=== PATIENT | female | born 2000 | race Caucasian/White ===

== ENCOUNTER 2022-01-14 15:46 | Outpatient (RCR) | payer OTHER, SELFPAY | END 2022-04-14 23:59 | disposition home or self-care (01) | LOC: ANHLAB 15:46 | PROVIDERS: PCP Pediatrics Adolescent Medicine; Visit Provider Obstetrics & Gynecology | DX: N92.6 Irregular menstruation, unspecified (principal) | CPT/HCPCS: 36415; 84702 ==

== ENCOUNTER 2022-01-16 08:56 | Outpatient (CLI) | payer OTHER, SELFPAY | END 2022-01-16 08:57 | disposition home or self-care (01) | PROVIDERS: PCP Pediatrics Adolescent Medicine; Visit Provider Obstetrics & Gynecology | DX: N92.6 Irregular menstruation, unspecified (principal) | CPT/HCPCS: 36415; 84702 ==

== ENCOUNTER 2022-03-11 10:37 | Outpatient (CLI) | payer MEDICAID, SELFPAY ==
[2022-03-11 11:12] LABS: Basophils Percent Auto 0.3 % (0.2-1.2); Eosinophils Absolute Auto 0.2 K/mm3 (0-0.3); Eosinophils Percent Auto 1.2 % (0-4.4); Hematocrit 37.5 % (37.0-47.0); Immature Granulocyte Absolute 0.07 K/mm3 (0.00-0.031); Immature Granulocyte Percent A 0.5 % (0-0.5); Lymphocytes Absolute Auto 1.59 K/mm3 (0.9-3.2); Lymphocytes Percent Auto 12.4 % (18.3-44.2); Mean Corpuscular HGB Conc 34.7 g/dl (32-36); Mean Corpuscular Hemoglobin 32.2 pg (26-34); Mean Corpuscular Volume 92.8 fl (80-100); Mean Platelet Volume 8.7 fl (7.4-10.4); Monocytes Absolute Auto 0.7 K/mm3 (0.1-0.6); Monocytes Percent Auto 5.5 % (2.6-8.5); Neutrophils Absolute Auto 10.3 K/mm3 (1.3-6.7); Neutrophils Percent Auto 80.1 % (45.5-73.1); Platelet Count Result 316 k/mm3 (150-375); Red Blood Count 4.04 M/mm3 (4.2-5.4); Red Cell Distribution Width 12.6 % (11.5-14.5); White Blood Count 12.9 K/mm3 (4.5-10.0)
[2022-03-11 12:05] LABS: HIV 1/2 Ab P24 Ag Result Negative (Negative)
[2022-03-11 12:18] LABS: Rubella IgG Antibody 0.8 IU/ML
[2022-03-11 16:29] LABS: Rapid Plasma Reagin Non-Reactive (NonReactive)
[2022-03-15 11:29] LABS: CMV IgG Antibody <0.60 U/mL (<0.60)
[2022-03-16 04:50] LABS: Varicella IgG Antibody <135.00 Index (>=165.00)
[2022-03-19 10:27] LABS: SMA 2.0 RISK VARIANT NOT DETECTED
[2022-03-20 00:57] LABS: CF Result NEGATIVE (NEGATIVE); Ethnicity NG
[2022-03-25 13:58] LABS: SMA Results Received Yes
== END 2022-03-11 10:38 | disposition home or self-care (01) ==
LOC: ANHLAB 10:37
PROVIDERS: PCP Pediatrics Adolescent Medicine; Visit Provider Obstetrics & Gynecology
DX: Z34.90 Encounter for supervision of normal pregnancy, unspecified, unspecified trimester (principal)
CPT/HCPCS: 36415; 81220; 81329; 85025; 86592; 86644; 86703; 86747; 86762; 86787; 86850; 86900; 86901; 87086; 87088; G0432

== ENCOUNTER 2022-06-09 15:21 | Observation (INO) | payer OTHER, SELFPAY ==
--- NOTE | 2022-06-09 15:21 | OBADM ---
This patient, Samia Green, admitted to the OB room OB Post 113 for observation. Patient/family oriented to hospital policies and general routines including ID bracelet, bed and alarms, visiting hours, pain management, procedures, bathroom and other care routines, personal items, smoking policy, room service/diet, and visiting hours. Patient/Family are encouraged to report perceived risks to care and to ask questions if they do not understand what they are told or what they should do.
[2022-06-09 15:35] VITALS: BMI 27.5
[2022-06-09 15:36] VITALS: BP 110/58; PULSE 92
[2022-06-09 15:37] VITALS: RESP 20; TEMP 36.6
[2022-06-09 16:04] LABS: Appearance Urine Cloudy (Clear); Bacteria Urine None Seen /hpf; Bilirubin Urine Negative (Negative); Blood Urine Negative (Negative); Color Urine Yellow (Yellow); Glucose Urine UA Negative (Negative); Ketones Urine Negative (Negative); Leukocyte Esterase Ur 2+ LEU/UL (Negative); Nitrate Urine Negative (Negative); Non Pathogenic Casts 0-2; Protein Urine Negative (Negative); RBC Urine 0-2 /hpf (0-2); Specific Grav Ur 1.015 (1.001-1.035); Squamous Epithelial Cell Urine Few /hpf (Few); Urobilinogen Urine 0.2 mg/dL (<2.0); WBC Urine 21-50 /hpf
[2022-06-09 16:09] LABS: Add Urine Microscopic? YES
--- NOTE | 2022-06-10 13:52 | P.PNOB_ITS ---
OB - Triage/Final Diagnosis Visit Information Date of evaluation: 06/09/22 Reason for evaluation: threatened labor Comments/Additional reasons for admission: I have assessed the risk for this patient, Samia Green, and determined that she would benefit from observation care. Evaluation Laboratory results: Laboratory Tests 06/09/22 15:50 Urine Color Yellow Urine Appearance Cloudy H Urine pH 6.0 Ur Specific [place] 1.015 Urine Protein Negative Urine Glucose (UA) Negative Urine Ketones Negative Ur Blood (Man) Negative Urine Nitrate Negative Urine Bilirubin Negative Urine Urobilinogen 0.2 Leukocyte Esterase Rfl 2+ H Urine RBC 0-2 Urine WBC 21-50 H Ur Squamous Epith Cells Few Urine Bacteria None seen Urine Casts 0-2 Vital signs: Vital Signs - 24 hr 06/09/22 15:36 06/09/22 15:37 06/09/22 15:35 Temperature 97.9 F Pulse Rate 92 Respiratory Rate 20 Blood Pressure 110/58 L Oxygen Delivery Room Air
== END 2022-06-09 16:55 | disposition home or self-care (01) ==
PROVIDERS: Admitting Provider Student in an Organized Health Care Education/Training Program; PCP Pediatrics Adolescent Medicine; Visit Provider Student in an Organized Health Care Education/Training Program
DX: O47.02 False labor before 37 completed weeks of gestation, second trimester (principal); O26.892 Other specified pregnancy related conditions, second trimester; R10.9 Unspecified abdominal pain; Z3A.26 26 weeks gestation of pregnancy
CPT/HCPCS: 81001; 87086; 87088; G0378; G0379

== ENCOUNTER 2022-06-21 10:37 | Observation (INO) | payer OTHER, SELFPAY ==
[2022-06-21] VITALS (9 sets, daily range): BP systolic 86–126; BP diastolic 59–99; PULSE 65–85; BMI 27.4
[2022-06-21 11:51] LABS: Appearance Urine Clear (Clear); Bilirubin Urine Negative (Negative); Blood Urine Negative (Negative); Color Urine Yellow (Yellow); Glucose Urine UA Negative (Negative); Ketones Urine Negative (Negative); Leukocyte Esterase Ur Negative LEU/UL (NEGATIVE); Nitrate Urine Negative (Negative); Protein Urine Negative (Negative); Specific Grav Ur 1.005 (1.001-1.035); Urobilinogen Urine 0.2 mg/dL (<2.0)
[2022-06-21 12:12] LABS: Add Urine Microscopic? NO
--- NOTE | 2022-06-21 12:58 | PC.NURSE ---
Dr Sher notified of c/o cramping and change in vaginal discharge, informed of reassuring tracing for gestational age and occa variable decels. No contractions noted or palpated when at bedside. ROM plus was negative. Ok to dc home with labor precautions.
--- NOTE | 2022-06-21 13:25 | PM.OBTRLD ---
OB - Triage/Final Diagnosis Visit Information Date of evaluation: 06/21/22 Reason for evaluation: threatened labor Comments/Additional reasons for admission: I have assessed the risk for this patient, Samia Green, and determined that she would benefit from observation care. Evaluation Laboratory results: Laboratory Tests 06/21/22 11:29 Urine Color Yellow Urine Appearance Clear Urine pH 8.0 Ur Specific [place] 1.005 Urine Protein Negative Urine Glucose (UA) Negative Urine Ketones Negative Ur Blood (Man) Negative Urine Nitrate Negative Urine Bilirubin Negative Urine Urobilinogen 0.2 Ur Leukocyte Esterase Negative Vital signs: Vital Signs - 24 hr 06/21/22 11:00 06/21/22 11:15 06/21/22 11:30 Pulse Rate 85 74 65 Blood Pressure 117/68 110/62 126/99 H 06/21/22 11:45 06/21/22 12:00 06/21/22 12:15 Pulse Rate 80 81 81 Blood Pressure 114/66 114/59 L 118/77 06/21/22 12:31 06/21/22 12:44 06/21/22 12:45 Pulse Rate 73 72 75 Blood Pressure 86/61 L 111/62 111/68
== END 2022-06-21 13:08 | disposition home or self-care (01) ==
PROVIDERS: Admitting Provider Student in an Organized Health Care Education/Training Program; PCP Pediatrics Adolescent Medicine; Visit Provider Student in an Organized Health Care Education/Training Program
DX: O47.02 False labor before 37 completed weeks of gestation, second trimester (principal); O26.892 Other specified pregnancy related conditions, second trimester; R10.9 Unspecified abdominal pain; Z3A.27 27 weeks gestation of pregnancy
CPT/HCPCS: 81003; 84112; 87086; G0378; G0379

== ENCOUNTER 2022-07-15 16:53 | Outpatient (CLI) | payer OTHER, SELFPAY ==
[2022-07-15 17:25] LABS: Basophils Absolute Auto 0.1 K/mm3 (0.0-0.1); Basophils Percent Auto 0.6 % (0.2-1.2); Eosinophils Absolute Auto 0.3 K/mm3 (0-0.3); Eosinophils Percent Auto 1.6 % (0-4.4); Hematocrit 34.5 % (37.0-47.0); Hemoglobin 11.7 g/dL (12.0-15.0); Immature Granulocyte Absolute 0.47 K/mm3 (0.00-0.031); Immature Granulocyte Percent A 2.7 % (0-0.5); Lymphocytes Absolute Auto 1.76 K/mm3 (0.9-3.2); Lymphocytes Percent Auto 10.1 % (18.3-44.2); Mean Corpuscular HGB Conc 33.9 g/dl (32-36); Mean Corpuscular Hemoglobin 31.5 pg (26-34); Mean Corpuscular Volume 92.7 fl (80-100); Mean Platelet Volume 9.2 fl (7.4-10.4); Monocytes Absolute Auto 1.4 K/mm3 (0.1-0.6); Monocytes Percent Auto 7.9 % (2.6-8.5); Neutrophils Absolute Auto 13.5 K/mm3 (1.3-6.7); Neutrophils Percent Auto 77.1 % (45.5-73.1); Platelet Count Result 407 k/mm3 (150-375); Red Blood Count 3.72 M/mm3 (4.2-5.4); Red Cell Distribution Width 12.2 % (11.5-14.5); White Blood Count 17.5 K/mm3 (4.5-10.0)
[2022-07-15 18:18] LABS: HIV 1/2 Ab P24 Ag Result Negative (Negative)
[2022-07-15 19:28] LABS: Hepatitis B Surface Antigen Negative (Negative)
== END 2022-07-15 16:54 | disposition home or self-care (01) ==
PROVIDERS: Visit Provider Obstetrics & Gynecology
DX: Z34.90 Encounter for supervision of normal pregnancy, unspecified, unspecified trimester (principal)
CPT/HCPCS: 36415; 85025; 86703; 87340; G0432

== ENCOUNTER 2022-07-16 08:25 | Outpatient (CLI) | payer OTHER, SELFPAY ==
[2022-07-16 10:35] LABS: Glucose 1 Hour PP 50gm Dose 115 mg/dL
== END 2022-07-16 08:26 | disposition home or self-care (01) ==
PROVIDERS: Visit Provider Obstetrics & Gynecology
DX: Z34.90 Encounter for supervision of normal pregnancy, unspecified, unspecified trimester (principal); Z3A.00 Weeks of gestation of pregnancy not specified
CPT/HCPCS: 36415; 82947

== ENCOUNTER 2022-08-03 14:40 | Observation (INO) | payer OTHER, SELFPAY ==
[2022-08-03 15:30] VITALS: BP 116/74; PULSE 88
[2022-08-03 16:00] VITALS: RESP 16; TEMP 36.8
--- NOTE | 2022-08-03 16:00 | OBADM ---
This patient, Samia Green, admitted to the OB room 115 for observation. Patient/family oriented to hospital policies and general routines including ID bracelet, bed and alarms, visiting hours, pain management, procedures, bathroom and other care routines, personal items, smoking policy, room service/diet, and visiting hours. Patient/Family are encouraged to report perceived risks to care and to ask questions if they do not understand what they are told or what they should do.
[2022-08-03 16:01] VITALS: BP 104/67; PULSE 89
[2022-08-03] MEDS: ONDANSETRON INJ 4 MG/2 ML VIAL IV PUSH (16:14)
[2022-08-03] MEDS: DEXTROSE 5%/LACTATED RINGERS 1,000 ML 999 ML IV CONT (16:14)
[2022-08-03 16:29] LABS: Basophils Absolute Auto 0.1 K/mm3 (0.0-0.1); Basophils Percent Auto 0.5 % (0.2-1.2); Eosinophils Absolute Auto 0.1 K/mm3 (0-0.3); Eosinophils Percent Auto 0.6 % (0-4.4); Hematocrit 33.2 % (37.0-47.0); Hemoglobin 11.1 g/dL (12.0-15.0); Immature Granulocyte Absolute 0.29 K/mm3 (0.00-0.031); Immature Granulocyte Percent A 1.5 % (0-0.5); Lymphocytes Percent Auto 9.6 % (18.3-44.2); Mean Corpuscular HGB Conc 33.4 g/dl (32-36); Mean Corpuscular Hemoglobin 30.1 pg (26-34); Mean Platelet Volume 9.4 fl (7.4-10.4); Monocytes Absolute Auto 1.2 K/mm3 (0.1-0.6); Monocytes Percent Auto 6.3 % (2.6-8.5); Neutrophils Absolute Auto 15.3 K/mm3 (1.3-6.7); Neutrophils Percent Auto 81.5 % (45.5-73.1); Platelet Count Result 413 k/mm3 (150-375); Red Blood Count 3.69 M/mm3 (4.2-5.4); Red Cell Distribution Width 12.2 % (11.5-14.5); White Blood Count 18.8 K/mm3 (4.5-10.0)
[2022-08-03 16:33] LABS: Appearance Urine Clear (Clear); Bacteria Urine None Seen /hpf; Bilirubin Urine Negative (Negative); Blood Urine Negative (Negative); Color Urine Yellow (Yellow); Glucose Urine UA Negative (Negative); Ketones Urine Trace mg/dL (Negative); Leukocyte Esterase Ur 1+ LEU/UL (Negative); Nitrate Urine Negative (Negative); Non Pathogenic Casts 0-2; Protein Urine Negative (Negative); RBC Urine 0-2 /hpf (0-2); Specific Grav Ur 1.009 (1.001-1.035); Squamous Epithelial Cell Urine Occasional /hpf (Few); Urobilinogen Urine 0.2 mg/dL (<2.0); WBC Urine 21-50 /hpf
[2022-08-03 16:38] LABS: Alanine Aminotransferase 16 U/L (6-35); Albumin Level 3.6 g/dL (3.5-5.1); Alkaline Phosphatase 109 U/L (38-126); Anion Gap 6 mmol/L (8-16); Aspartate Amino Transferase 23 U/L (14-36); Bilirubin,Total 0.5 mg/dL (0.2-1.3); Blood Urea Nitrogen 5 mg/dL (7-17); Calcium 8.7 mg/dL (8.4-10.2); Carbon Dioxide 24 mmol/L (22-30); Chloride 101 mmol/L (98-107); Estimated Glomerular Filt Rate > 60; Glucose 87 mg/dL (65-110); Potassium 3.8 mmol/L (3.4-5.0); Sodium 131 mmol/L (137-145)
[2022-08-03 16:42] LABS: Add Urine Microscopic? YES
[2022-08-03 17:00] VITALS: BP 118/76; PULSE 67
[2022-08-03] MEDS: NITROFURANTOIN MONOHYD MACROCR 100 MG CAP PO (17:57)
[2022-08-03] MEDS: FAMOTIDINE 20 MG TABLET PO (17:57)
[2022-08-03 18:01] VITALS: BP 128/93; PULSE 80
[2022-08-03 18:13] VITALS: BP 126/77; PULSE 77
--- NOTE | 2022-08-03 20:36 | P.PNOB_ITS ---
OB - Triage/Final Diagnosis Visit Information Comments/Additional reasons for admission: I have assessed the risk for this patient, Samia Green, and determined that she would benefit from observation care. Evaluation Laboratory results: Laboratory Tests 08/03/22 16:19 WBC 18.8 H RBC 3.69 L Hgb 11.1 L Hct 33.2 L MCV 90.0 MCH 30.1 MCHC 33.4 RDW 12.2 Plt Count 413 H MPV 9.4 Immature Gran % (Auto) 1.5 H Neut % (Auto) 81.5 H Lymph % (Auto) 9.6 L [place] % (Auto) 6.3 Eos % (Auto) 0.6 Baso % (Auto) 0.5 Lymph # (Auto) 1.80 [place] # (Auto) 1.2 H Eos # (Auto) 0.1 Baso # (Auto) 0.1 Abs Immat Gran (auto) 0.29 H Absolute Neuts (auto) 15.3 H Absolute Nucleated RBC 0.0 Nucleated RBC % 0.0 Sodium 131 L Potassium 3.8 Chloride 101 Carbon Dioxide 24 Anion Gap 6 L BUN 5 L Creatinine 0.40 L Estim Creat Clear Calc Not Reportable Estimated GFR > 60 Glucose 87 Calcium 8.7 Total Bilirubin 0.5 AST 23 ALT 16 Alkaline Phosphatase 109 Total Protein 7.0 Albumin 3.6 Urine Color Yellow Urine Appearance Clear Urine pH 6.0 Ur Specific [place] 1.009 Urine Protein Negative Urine Glucose (UA) Negative Urine Ketones Trace H Ur Blood (Man) Negative Urine Nitrate Negative Urine Bilirubin Negative Urine Urobilinogen 0.2 Leukocyte Esterase Rfl 1+ H Urine RBC 0-2 Urine WBC 21-50 H Ur Squamous Epith Cells Occasional Urine Bacteria None seen Urine Casts 0-2 Vital signs: Vital Signs - 24 hr 08/03/22 15:30 08/03/22 16:01 08/03/22 17:00 Pulse Rate 88 89 67 Blood Pressure 116/74 104/67 118/76 08/03/22 18:01 08/03/22 18:13 Pulse Rate 80 77 Blood Pressure 128/93 H 126/77 Final Diagnosis (1) Nausea and vomiting during : Code(s): O21.9 - Vomiting of , unspecified Status: Acute (2) UTI (urinary tract infection): Code(s): N39.0 - Urinary tract infection, site not specified Status: Acute
== END 2022-08-03 19:10 | disposition home or self-care (01) ==
PROVIDERS: Admitting Provider Obstetrics & Gynecology; Visit Provider Obstetrics & Gynecology
DX: O21.2 Late vomiting of pregnancy (principal); O99.891 Other specified diseases and conditions complicating pregnancy; N39.0 Urinary tract infection, site not specified; Z3A.34 34 weeks gestation of pregnancy
CPT/HCPCS: 36415; 80053; 81001; 85025; 87086; 96361; 96374; A9270; G0378; G0379; J2405; J7121

== ENCOUNTER 2022-08-19 14:08 | Inpatient (IN) | payer OTHER, SELFPAY ==
[2022-08-19] VITALS (131 sets, daily range): BP systolic 123–177; BP diastolic 60–161; PULSE 69–184; TEMP 36.3–36.6; O2SAT 98–100; BMI 31.5
--- NOTE | 2022-08-19 12:20 | PC.NURSE ---
pt sent from Dr. Valdez office. Orders received for pt to have NST and [place].
[2022-08-19] MEDS: BETAMETHASONE SOD PHOS/ACETATE 30 MG/5 ML VIAL 12 MG IM (12:27)
[2022-08-19 14:08] LABS: Appearance Urine Cloudy (Clear); Bacteria Urine Rare /hpf; Bilirubin Urine Negative (Negative); Blood Urine Negative (Negative); Color Urine Yellow (Yellow); Glucose Urine UA Negative (Negative); Ketones Urine 2+ mg/dL (Negative); Leukocyte Esterase Ur 3+ LEU/UL (NEGATIVE); Nitrate Urine Negative (Negative); Non Pathogenic Casts 0-2; Protein Urine Negative (Negative); RBC Urine 0-2 /hpf (0-2); Specific Grav Ur 1.012 (1.001-1.035); Squamous Epithelial Cell Urine Few /hpf (Few); Urobilinogen Urine 0.2 mg/dL (<2.0); WBC Urine >100 /hpf (0-3)
[2022-08-19] MEDS: LACTATED RINGERS 1,000 ML 125 ML IV CONT ×2 (14:24→18:44)
[2022-08-19] MEDS: AMPICILLIN 2 GM/NS 100 ML 2 GM/100 ML BAG IVPB (14:25)
[2022-08-19 14:34] LABS: Add Urine Microscopic? YES
[2022-08-19 14:37] LABS: Basophils Absolute Auto 0.1 K/mm3 (0.0-0.1); Basophils Percent Auto 0.4 % (0.2-1.2); Eosinophils Absolute Auto 0.2 K/mm3 (0-0.3); Eosinophils Percent Auto 0.9 % (0-4.4); Hematocrit 34.9 % (37.0-47.0); Hemoglobin 11.8 g/dL (12.0-15.0); Immature Granulocyte Absolute 0.31 K/mm3 (0.00-0.031); Immature Granulocyte Percent A 1.5 % (0-0.5); Lymphocytes Absolute Auto 1.42 K/mm3 (0.9-3.2); Mean Corpuscular HGB Conc 33.8 g/dl (32-36); Mean Corpuscular Hemoglobin 29.9 pg (26-34); Mean Corpuscular Volume 88.6 fl (80-100); Mean Platelet Volume 9.1 fl (7.4-10.4); Monocytes Absolute Auto 0.8 K/mm3 (0.1-0.6); Monocytes Percent Auto 3.7 % (2.6-8.5); Neutrophils Absolute Auto 17.6 K/mm3 (1.3-6.7); Neutrophils Percent Auto 86.5 % (45.5-73.1); Platelet Count Result 474 k/mm3 (150-375); Red Blood Count 3.94 M/mm3 (4.2-5.4); Red Cell Distribution Width 12.7 % (11.5-14.5); White Blood Count 20.4 K/mm3 (4.5-10.0)
--- NOTE | 2022-08-19 15:29 | LDADM ---
This patient, Samia Green, was admitted to OB Post 112 on 08/19/22 at 14:08. Plans for labor, pain management and were discussed with patient. Patient/family oriented to hospital policies and general routines including ID bracelet, bed and alarms, visiting hours, pain management, procedures, bathroom and other care routines, personal items, smoking policy, room service/diet and guest tray routines, security routines, and visiting hours. Patient/Family are encouraged to report perceived risks to care and to ask questions if they do not understand what they are told or what they should do. See OBIX for further documentation.
--- NOTE | 2022-08-19 16:49 | WPDANESEPP ---
Anes - Eval Pre Procedure Procedure: Labor epidural Date/Time: 08/19/22 16:49 Surgeon: Nikky Preop Diagnosis: Abdominal pain with contractions Pre Op Diagnosis: nst/injection Patient Data Age: 22 Gender: F Height: 1.65 m Weight: 86 kg Last Vital Signs Pulse 85 08/19/22 14:45 BP 123/80 08/19/22 14:45 Allergies Allergy/AdvReac Type Severity Reaction Status Date / Time shellfish derived Allergy Intermediate Rash Verified 08/19/22 11:30 Home Medications Medication Instructions Recorded Confirmed Type prenat.vits,brendan,vms-ifhk-bjcpk 1 tablet PO DAILY 02/11/22 08/19/22 History ondansetron 4 mg disintegrating 4 mg PO Q6H #30 tabs 08/03/22 08/19/22 Rx tablet valacyclovir 500 mg tablet 500 mg PO Q12H #90 tabs 08/12/22 08/19/22 Rx Laboratory Tests 08/19/22 08/19/22 13:53 14:27 WBC 20.4 H K/mm3 (4.5-10.0) RBC 3.94 L M/mm3 (4.2-5.4) Hgb 11.8 L g/dL (12.0-15.0) Hct 34.9 L % (37.0-47.0) MCV 88.6 fl (80-100) MCH 29.9 pg (26-34) MCHC 33.8 g/dl (32-36) RDW 12.7 % (11.5-14.5) Plt Count 474 H k/mm3 (150-375) MPV 9.1 fl (7.4-10.4) Immature Gran % (Auto) 1.5 H % (0-0.5) Neut % (Auto) 86.5 H % (45.5-73.1) Lymph % (Auto) 7.0 L % (18.3-44.2) [place] % (Auto) 3.7 % (2.6-8.5) Eos % (Auto) 0.9 % (0-4.4) Baso % (Auto) 0.4 % (0.2-1.2) Lymph # (Auto) 1.42 K/mm3 (0.9-3.2) [place] # (Auto) 0.8 H K/mm3 (0.1-0.6) Eos # (Auto) 0.2 K/mm3 (0-0.3) Baso # (Auto) 0.1 K/mm3 (0.0-0.1) Abs Immat Gran (auto) 0.31 H K/mm3 (0.00-0.031) Absolute Neuts (auto) 17.6 H K/mm3 (1.3-6.7) Absolute Nucleated RBC 0.0 K/mm3 (0.0-0.012) Nucleated RBC % 0.0 % (0.0-0.2) Urine Color Yellow (Yellow) Urine Appearance Cloudy H (Clear) Urine pH 6.0 (5.0-9.0) Ur Specific [place] 1.012 (1.001-1.035) Urine Protein Negative mg/dL (Negative) Urine Glucose (UA) Negative mg/dL (Negative) Urine Ketones 2+ H mg/dL (Negative) Ur Blood (Man) Negative (Negative) Urine Nitrate Negative (Negative) Urine Bilirubin Negative (Negative) Urine Urobilinogen 0.2 mg/dL (<2.0) Ur Leukocyte Esterase 3+ H DANISHA/UL (NEGATIVE) Urine RBC 0-2 /hpf (0-2) Urine WBC >100 H /hpf (0-3) Ur Squamous Epith Cells Few /hpf (Few) Urine Bacteria Rare /hpf Urine Casts 0-2 RPR Pending Blood Type A Positive Antibody Screen Negative : gestational age HCG: positive Patient hx anesthesia problems: none Family hx anesthesia problems: none Results Review: All pre-operative results and documents have been reviewed as part of the pre-operative evaluation. [facility] Past Medical History Medical History Anxiety Depression Irregular periods/menstrual cycles Overweight (BMI 25.0-29.9) and not yet delivered Sexually transmissible disease Surgical History Surgical History History of placement of ear tubes @ age 5 Family History Family History Grandparent Hypertension paternal grandmother Malignant tumor of ovary maternal grandmother Social History Social History Years smoked: 5 Smoking status: Former smoker Tobacco type: e-cigarettes/vaping Additional smoking assessment comments: vaped Alcohol intake: never Substance use: current Substance use type: marijuana Last use: today/daily Lack of Transportation: No Lack of Food: Never True Current Housing: I Have Housing Concerned About Future Housing: No Difficulty Paying Gas/Elect
[2022-08-19] MEDS: LACTATED RINGERS 1,000 ML 999 ML IV CONT (16:59)
--- NOTE | 2022-08-19 17:04 | PC.NURSE ---
Dr. Valdez updated on pts contraction increasing. SVE reported with bulging bag. Dr Sher to come in a scan the pt to confirm head down.
[2022-08-19] MEDS: AMPICILLIN 1 GM/NS 50 ML 1 GM/50 ML BAG IVPB ×2 (18:39→22:49)
--- NOTE | 2022-08-19 19:22 | WPDHPUPDATE1 ---
History and Physical Update Update Date/Time: 08/19/22 19:22 22 yo at 36w2d who presents in labor. Pt was seen at outpatient visit today and was found to be dilated with a bulging bag of water. 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 History and Physical has been reviewed, including an updated exam of the patient. There are NO changes in the patient's condition. Risks, benefits, and alternatives have been discussed and questions answered. Patient agrees to proceed with procedure. A/P: admit to L&D routine admission orders GBS unknown, will start antibiotics Rh + continuos EFM will administer BTMS for lung maturity expectant management
--- NOTE | 2022-08-19 19:25 | PM.OBPNLAB ---
Pain Control Date/time seen: 08/19/22 19:25 Pain control: epidural Pelvic Exam Dilation (cm): 6 Effacement (%): 90 station: -1 Amniotic membrane status: Bulging Contractions Monitor mode: External Contraction pattern: Regular Status status: Category l Assessment and Plan Assessment: active labor Comments: AROM for clear fluid. IUPC placed. continue expectant management
[2022-08-20] VITALS (52 sets, daily range): BP systolic 123–161; BP diastolic 68–144; PULSE 70–164; RESP 16–18; TEMP 36.3–37.1; O2SAT 97–100
--- NOTE | 2022-08-20 00:45 | PM.OBPRVD ---
OB - Delivery Note Procedure Procedure: Patient pushed for a spontaneous vaginal delivery. The fetus was delivered atraumatically and placed on the maternal abdomen. The cord was clamped and cut after 1 minute of life. The cord was double clamped and cut and a segment of cord was collected for cord gases. Cord blood was collected for blood type and Coomb's testing. The placenta delivered spontaneously and was noted to be intact. The perineum was inspected and there was a 2nd degree perineal laceration. The laceration was repaired with 3-0 vicryl in the usual fashion. The uterus was firm and good hemostasis was noted. The patient and fetus were stable in the delivery room. Events: Other ( labor) Induction method: None Delivery augmentation: Rupture of Membranes Delivery monitor: External FHT Route of delivery: Episiotomy description: None Laceration Description: Perineal - 2nd Degree Delivery repair: vicryl Specimen: No Quantitative Blood Loss (ml): 250 Anesthesia type: Epidural Disposition: Floor () Complications: No immediate complications [place] Baby Date of : 08/20/22 Time of : 00:28 Weeks of gestation at delivery: 36 Infant gender: Male Weight (pounds): 6 Weight (ounces): 7 presentation: vertex position: Right Occiput Anterior Placenta delivery description: Spontaneous Cord Vessel Description: 3 Vessels score one minute: 8 score five minutes: 9 AMG Delivery Billing Delivery Delivery: Delivery Charge
[2022-08-20] MEDS: OXYTOCIN 30 UNITS/NS 500 ML 30 UNITS/500 ML BAG 125 UNITS IV CONT (01:06)
[2022-08-20] MEDS: IBUPROFEN 600 MG TABLET PO (02:24)
[2022-08-20] MEDS: WITCH HAZEL 40 PADS 1 PAD TOPICAL (02:26)
[2022-08-20] MEDS: BENZOCAINE 20% AER SPR (*SP) 56 GM CAN 1 SPRAY TOPICAL (02:26)
[2022-08-20] MEDS: DOCUSATE SODIUM 100 MG CAPSULE PO (09:03)
[2022-08-20] MEDS: MULTIVIT/MIN/PREN/FOL AC/IRON TABLET 1 TAB PO (09:03)
--- NOTE | 2022-08-20 11:42 | PM.OBPNVD ---
OB - PN: Subj Subjective Date/time seen: 08/20/22 11:42 Patient comments: no complaints, pain well controlled and tolerating diet [place] feeding status: exclusively breast feeding Narrative: patient doing well this AM. No complaints. Pain is well controlled. She reports minimal bleeding. She is ambulating and voiding without difficulty. She is tolerating PO. She denies N/V, fever, chills. OB - PN: Obj Data Labs 08/19/22 14:27 Labs: Laboratory Results - last 24 hr 08/19/22 08/19/22 13:53 14:27 WBC 20.4 H RBC 3.94 L Hgb 11.8 L Hct 34.9 L MCV 88.6 MCH 29.9 MCHC 33.8 RDW 12.7 Plt Count 474 H MPV 9.1 Immature Gran % (Auto) 1.5 H Neut % (Auto) 86.5 H Lymph % (Auto) 7.0 L [place] % (Auto) 3.7 Eos % (Auto) 0.9 Baso % (Auto) 0.4 Lymph # (Auto) 1.42 [place] # (Auto) 0.8 H Eos # (Auto) 0.2 Baso # (Auto) 0.1 Abs Immat Gran (auto) 0.31 H Absolute Neuts (auto) 17.6 H Absolute Nucleated RBC 0.0 Nucleated RBC % 0.0 Urine Color Yellow Urine Appearance Cloudy H Urine pH 6.0 Ur Specific [place] 1.012 Urine Protein Negative Urine Glucose (UA) Negative Urine Ketones 2+ H Ur Blood (Man) Negative Urine Nitrate Negative Urine Bilirubin Negative Urine Urobilinogen 0.2 Ur Leukocyte Esterase 3+ H Urine RBC 0-2 Urine WBC >100 H Ur Squamous Epith Cells Few Urine Bacteria Rare Urine Casts 0-2 Blood Type A Positive Antibody Screen Negative OB - PN A/P Plan day: 1 Plan: routine care Comments: patient doing well H/H stable pt desires circumcision. Risks benefits, alternative discussed. Maternal consent obtained. continue routine care Time Spent With Patient Time: Total time spent is greater than 50% in coordination of care (as documented) at patient's floor/unit and/or counseling patient: Time with patient: less than 15 minutes Review of Systems Review of Systems: All systems reviewed & are unremarkable except as noted in HPI and below Exam Const: General: comfortable and no acute distress Resp: Effort & Inspection: normal respiratory effort Cardio: Rate: regular rate GI: GI Palp: Yes Soft to palpation and No Tenderness to palpation present (GI) Auscultation: normal bowel sounds Other: fundus firm and below umbilicus. Psych: Affect: normal affect
--- NOTE | 2022-08-20 11:43 | PM.OBDSVD ---
DS: Admitting Diagnosis Discharge Date 08/22/22 <Yulissa Valdez MD - Last Filed: 08/22/22 10:49> Admitting Diagnosis labor intrauterine <Med Sher MD - Last Filed: 08/23/22 08:00> DS: Discharge Diagnosis Discharge Diagnosis (1) labor in third trimester with delivery: Qualifiers: Fetus number: single or unspecified fetus Qualified Code(s): O60.14X0 - labor third trimester with delivery third trimester, not applicable or unspecified <Med Sher MD - Last Filed: 08/23/22 08:00> Code(s): O60.14X0 - labor third trimester with delivery third trimester, not applicable or unspecified <Med Sher MD - Last Filed: 08/23/22 08:00> Status: Acute <Med Sher MD - Last Filed: 08/23/22 08:00> OB - DS: Summary OB Procedures : None <Med Sher MD - Last Filed: 08/23/22 08:00> OB Procedures Intrapartum: Spontaneous Vag Delivery <Med Sher MD - Last Filed: 08/23/22 08:00> OB Procedures: : None <Med Sher MD - Last Filed: 08/23/22 08:00> Peripartum Data Infant Delivery Method: Natural Vaginal <Yulissa Valdez MD - Last Filed: 08/22/22 10:49> Laceration Description: Perineal - 2nd Degree <Yulissa Valdez MD - Last Filed: 08/22/22 10:49> complications: none <Yulissa Valdez MD - Last Filed: 08/22/22 10:49> 1: Gender: Male <Yulissa Valdez MD - Last Filed: 08/22/22 10:49> Status at Discharge Functional status at discharge: independent ambulation <Med Sher MD - Last Filed: 08/23/22 08:00> Overall status at discharge: patient is back to baseline <Med Sher MD - Last Filed: 08/23/22 08:00> Time Spent with Patient Time attestation: Total time spent providing and/or coordinating discharge services: <Med Sher MD - Last Filed: 08/23/22 08:00> Time spent: Less than 30 minutes <Med Sher MD - Last Filed: 08/23/22 08:00> Exam Const: General: comfortable and no acute distress <Med Sher MD - Last Filed: 08/23/22 08:00> General: cooperative and healthy appearing <Yulissa Valdez MD - Last Filed: 08/22/22 10:49> Orientation/consciousness: patient oriented x3 <Yulissa Valdez MD - Last Filed: 08/22/22 10:49> Resp: Effort & Inspection: normal respiratory effort <Med Sher MD - Last Filed: 08/23/22 08:00> Auscultation: clear to auscultation bilaterally <Med Sher MD - Last Filed: 08/23/22 08:00> Cardio: Rate: regular rate <Med Sher MD - Last Filed: 08/23/22 08:00> GI: Inspection: non-distended <Yulissa Valdez MD - Last Filed: 08/22/22 10:49> GI Palp: Yes Soft to palpation <Med Sher MD - Last Filed: 08/23/22 08:00> Auscultation: normal bowel sounds <Med Sher MD - Last Filed: 08/23/22 08:00> Other: Fundus firm below umbilicus <Med Sher MD - Last Filed: 08/23/22 08:00> : Other: fundus firm <Yulissa Valdez MD - Last Filed: 08/22/22 10:49> Skin: General skin exam: normal color <Yulissa Valdez MD - Last Filed: 08/22/22 10:49> Neuro: General: patient oriented x3 <Yulissa Valdez MD - Last Filed: 08/22/22 10:49> Extrem: General: normal to inspection <Yulissa Valdez MD - Last Filed: 08/22/22 10:49> Psych: Appearance: grossly normal <Med Sher MD - Last Filed: 08/23/22 08:00> Mental Status: mental status grossly normal <Med Sher MD - Last Filed: 08/23/22 08:00> Affect: normal affect <Med Shre MD - Last Filed: 08/23/22 08:00> Attitude: cooperative <Yulissa Valdez MD - Last Filed: 08/22/22 10:49> DS: Data Data Completed and Pending Pending studies at discharge: Pending at discharge 08/20/22 00:32 Surgical [PTH] Routine <Med Sher MD - Last Filed: 08/23/22 08:00>
--- NOTE | 2022-08-20 12:47 | PC.NURSE ---
Addendum entered by Marialuisa Haile RN 08/20/22 12:54: Part of this activity noted was from [id number] Original Note: [id number] Introductions were made, then consulted with patient to assess needs related to . Mother led the conversation with her?plans to feed?her and the?experience so far. Resources provided for inpatient and outpatient services with the feeding sheet, mom/baby guide and name written on the white board. Mother voiced understanding of information and requests assistance. Mother works well with her infant with encouragement and education. Infant's EGA of 36 05/11. Blood sugar resulted at 41mg/dl. Encouraged understanding of the benefits of skin to skin (demonstrating unwrapping infant and placing upright on her chest), stimulating with massage touch, changing positions to encourage wakefulness, how to watch for early feeding cues, responsive feeding, feeding on demand (aiming for 8-12 times in 24 hours, about every 2-3 hours), milk production, building/maintaining a milk supply, duration of feeding, signs of adequate intake/output and how to record on the feeding sheet. Reviewed positioning and ear, shoulder, hip alignment, supporting the breast to facilitate a deep latch, asymmetrical latch (off-center), leading with the chin with a big, open, wide gape and body close to mother. latched optimally to the left breast in football position. Education given to mother of how to visualize suck/swallow ratios and listen for drinking at the breast. Infant was able to maintain latch without discomfort to mother for 20 minutes. Nipple care reviewed with optimal latch and good positioning. Reviewed good handwashing when or touching the breast/nipples to prevent infection. Infant was ordered to receive formula supplementation. Infant is a poor mercerizing range feeder. doesn't suck on the bottle but rather swallows what drips in his mouth. Breast pump provided due to protect the milk supply if infant is receiving bottles and not . Instructions given on cleaning, care, usage, that there should be no pain, pumping schedule for milk production, collection, and storage of human milk. Reviewed to pump for comfort and nipple stretching/stimulation for adequate milk production 8 times in 24 hours. Resources used to facilitate learning were used with the mom and baby guide. Reviewed late feeding behaviors. Care coordination came into the room and began talking with patient regarding support services. Reported to the primary RN.
[2022-08-20 14:22] LABS: Rapid Plasma Reagin Non-Reactive (NonReactive)
--- NOTE | 2022-08-20 15:53 | PCCCNOTE ---
Care Coordination. Pt. referred to CC for needing food resources. Pt. given pantry information, , and WIC information. Met with pt. and FOB at bedside. Pt. reports she is already setup with WIC. She and FOB plan to return home with baby and pt.'s mother. They report not making a lot of money, so did talk with Whitney from [facility] who will also apply pt. for food stamps. Pt. and FOB report they have necessary baby care items and family support. Provided them a basket of baby care items as well. No further CC needs identified.
[2022-08-21 01:20] VITALS: BP 120/76; PULSE 74; RESP 18; O2SAT 96
[2022-08-21 06:16] LABS: Hematocrit 29.2 % (37.0-47.0); Hemoglobin 9.4 g/dL (12.0-15.0)
[2022-08-21 07:30] VITALS: BP 129/88; PULSE 66; RESP 16; TEMP 36.8; O2SAT 99
--- NOTE | 2022-08-21 08:39 | P.PNOB_ITS ---
OB - PN: Subj Subjective Date/time seen: 08/21/22 08:39 Narrative: PPD#1 Samia reports doing well today. 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 Her pain is controlled. She is tolerating regular diet, voiding, passing gas, and ambulating without issues. She is breast feeding. She would like her son circumcised, but he's on D10 and pedi would prefer we wait a few days. OB - PN: Obj Data Labs 08/21/22 03:31 Labs: Laboratory Results - last 24 hr 08/19/22 08/21/22 14:27 03:31 Hgb 9.4 L Hct 29.2 L RPR Non-reactive OB - PN A/P Assessment and Plan (1) labor in third trimester with delivery: Qualifiers: Fetus number: single or unspecified fetus Qualified Code(s): O60.14X0 - labor third trimester with delivery third trimester, not applicable or unspecified Code(s): O60.14X0 - labor third trimester with delivery third trimester, not applicable or unspecified Status: Acute Plan day: 1 Plan: routine care Time Spent With Patient Time: Total time spent is greater than 50% in coordination of care (as documented) at patient's floor/unit and/or counseling patient: Review of Systems Constitutional: Constitutional: Denies chills, Denies fever(s) and Denies headache(s) Eyes: Eyes: Denies change in vision ENT: Denies dizziness and Denies headache(s) Cardiovascular: Cardiovascular: Denies chest pain, Denies palpitations and Denies dyspnea Respiratory: Respiratory: Denies cough and Denies dyspnea Gastrointestinal: Gastrointestinal: Denies nausea and Denies vomiting Neurologic: Denies dizziness and Denies headache(s) Endocrine: Endocrine: Denies palpitations Exam Const: General: cooperative, healthy appearing, comfortable and no acute distress Orientation/consciousness: patient oriented x3 Resp: Effort & Inspection: normal respiratory effort Auscultation: clear to auscultation bilaterally Cardio: Rate: regular rate GI: Inspection: non-distended GI Palp: No abdominal tenderness and Yes Soft to palpation Auscultation: normal bowel sounds : Other: fundus firm Skin: General skin exam: normal color Neuro: General: patient oriented x3 Extrem: General: normal to inspection Psych: Appearance: grossly normal Affect: normal affect Attitude: cooperative
[2022-08-21] MEDS: POLYSACCHARIDE IRON COMPLEX 150 MG CAPSULE PO ×2 (08:53→17:31)
[2022-08-21] MEDS: DOCUSATE SODIUM 100 MG CAPSULE PO ×2 (08:53→17:31)
[2022-08-21] MEDS: MULTIVIT/MIN/PREN/FOL AC/IRON TABLET 1 TAB PO (08:53)
--- NOTE | 2022-08-21 13:20 | WPDANLDPN2 ---
Anes-Prog Note L&D Date/Time: 08/21/22 13:20 Comfortable throughout: labor and delivery Neuraxial method: epidural Epidural/Spinal procedure site: clean & non-tender Neuro status: Neuro function grossly intact. Cardiovascular status: normal Respiratory status: normal Airway patency: baseline Mental status: baseline Post-Op hydration status: normal Vital Signs: Last Vital Signs Temp 36.8 C 08/21/22 07:30 Pulse 66 08/21/22 07:30 Resp 16 08/21/22 07:30 BP 129/88 08/21/22 07:30 Pulse Ox 99 08/21/22 07:30 O2 Del Method Room Air 08/21/22 07:30 Pain score (VAS): 03/16 Post-procedural complaints: none Patient feedback: Patient satisfied with anesthetic care.
[2022-08-21] MEDS: IBUPROFEN 600 MG TABLET PO (17:31)
[2022-08-21 19:45] VITALS: BP 132/88; PULSE 78; RESP 16; TEMP 36.6; O2SAT 100
--- NOTE | 2022-08-21 19:56 | PC.NURSE ---
08/21/2022 at 1945 I discussed with Samia the possibility herself and her having HSV. I really think it was something his x-girlfriend told him, and I really don't think it's true. Samia states. I told Samia that was fine, but to be on the safe side she, (and she should share this info with her significant other) should use excellent hand washing in the bathroom. If either of them notice any lesions or anything they believe is a lesion they should contact their health provider at once and get on a prescription, (probably Valtrex), and take it. I continued to tell Samia that it is possible for either parent to give herpes to the baby. I also reviewed with Samia what symptoms she would see in baby if he would get herpes. Symptoms such as poor eating, lethargy, fever, not acting right, and neurological symptoms such as seizures. If baby would have any of these symptoms she should contact baby's doctor or take baby to the nearest ER and tell them about the herpes possibility. Samia states understanding.
[2022-08-22 08:30] VITALS: BP 127/75; PULSE 84; RESP 16; TEMP 36.8; O2SAT 100
[2022-08-22] MEDS: POLYSACCHARIDE IRON COMPLEX 150 MG CAPSULE PO ×2 (08:39→17:03)
[2022-08-22] MEDS: DOCUSATE SODIUM 100 MG CAPSULE PO ×2 (08:39→17:03)
[2022-08-22] MEDS: MULTIVIT/MIN/PREN/FOL AC/IRON TABLET 1 TAB PO (08:39)
[2022-08-22] MEDS: MEASLES,MUMPS,RUBELLA VACCINE 0.5 ML VIAL SUB-Q (17:02)
[2022-08-22] MEDS: IBUPROFEN 600 MG TABLET PO (17:03)
--- NOTE | 2022-08-22 17:15 | PC.NURSE ---
Patient viewed the discharge video Mother & Baby Care, The First Two Weeks . Patient was given the opportunity and encouraged to ask questions. Patient verbalized understanding of information shared and has been given the mother/baby guide for home reference.
[2022-08-23 09:52] VITALS: BP 127/86; PULSE 86; RESP 18; TEMP 37.2; O2SAT 100
== END 2022-08-22 17:25 | disposition home or self-care (01) | DRG 560 ==
LOC: ANHOBOP 14:25 → ANHOBPP 14:25 → ANHLDR 16:23 → ANHOB2 08-20 11:44 → ANHLDR 08-24 09:58 → ANHOB2 08-24 09:58
PROVIDERS: Admitting Provider Obstetrics & Gynecology; Visit Provider Student in an Organized Health Care Education/Training Program
DX: O60.14X0 Preterm labor third trimester with preterm delivery third trimester, not applicable or unspecified (principal); O70.1 Second degree perineal laceration during delivery; Z37.0 Single live birth; Z3A.36 36 weeks gestation of pregnancy
CPT/HCPCS: 36415; 59025; 81001; 85014; 85018; 85025; 86592; 86850; 86900; 86901; 88307; 90710; 96372; A9270; J0290; J0702; J2590; J2795; J7120

== ENCOUNTER 2024-01-25 07:42 | Outpatient (CLI) | payer OTHER, SELFPAY ==
[2024-01-25 08:06] LABS: Basophils Absolute Auto 0.1 K/mm3 (0.0-0.1); Basophils Percent Auto 0.6 % (0.2-1.2); Eosinophils Absolute Auto 0.3 K/mm3 (0-0.3); Hematocrit 35.7 % (37.0-47.0); Hemoglobin 11.9 g/dL (12.0-15.0); Immature Granulocyte Absolute 0.03 K/mm3 (0.00-0.031); Immature Granulocyte Percent A 0.4 % (0-0.5); Lymphocytes Absolute Auto 1.56 K/mm3 (0.9-3.2); Lymphocytes Percent Auto 20.2 % (18.3-44.2); Mean Corpuscular HGB Conc 33.3 g/dl (32-36); Monocytes Absolute Auto 0.7 K/mm3 (0.1-0.6); Monocytes Percent Auto 8.6 % (2.6-8.5); Neutrophils Absolute Auto 5.1 K/mm3 (1.3-6.7); Neutrophils Percent Auto 66.2 % (45.5-73.1); Platelet Count Result 360 k/mm3 (150-375); Red Blood Count 4.25 M/mm3 (4.2-5.4); Red Cell Distribution Width 15.4 % (11.5-14.5); White Blood Count 7.7 K/mm3 (4.5-10.0)
[2024-01-25 08:35] LABS: Iron 85 ug/dL (37-170)
[2024-01-25 08:45] LABS: Percent Iron Saturation 21 % (20-50)
[2024-01-25 09:09] LABS: HIV 1/2 Ab P24 Ag Result Negative (Negative)
[2024-01-25 09:10] LABS: Ferritin 8.01 ng/mL (6.24-137)
[2024-01-25 10:28] LABS: Hepatitis B Surface Antigen Negative (Negative)
[2024-01-25 16:09] LABS: Rapid Plasma Reagin Non-Reactive (NonReactive)
[2024-01-27 04:18] LABS: Varicella IgG Antibody <1.00 S/CO
== END 2024-01-25 07:43 | disposition home or self-care (01) ==
PROVIDERS: Visit Provider Obstetrics & Gynecology
DX: N91.2 Amenorrhea, unspecified (principal)
CPT/HCPCS: 36415; 82728; 83540; 83550; 84702; 85025; 86592; 86644; 86703; 86747; 86762; 86787; 86850; 86900; 86901; 87086; 87340; G0432

== ENCOUNTER 2024-05-08 04:01 | Emergency (ER) | payer OTHER, SELFPAY ==
[2024-05-08 04:04] VITALS: BP 111/58; PULSE 89; RESP 17; TEMP 36.2; O2SAT 98
[2024-05-08 04:16] VITALS: BP 120/84; PULSE 104; RESP 18; TEMP 37.3; O2SAT 98
[2024-05-08 04:24] LABS: Add Urine Microscopic? YES; Appearance Urine Cloudy (Clear); Bacteria Urine Rare /hpf; Bilirubin Urine Negative (Negative); Blood Urine Trace (Negative); Color Urine Yellow (Yellow); Glucose Urine UA Negative (Negative); Ketones Urine 1+ mg/dL (Negative); Leukocyte Esterase Ur 3+ LEU/UL (Negative); Nitrate Urine Negative (Negative); Non Pathogenic Casts 0-2; Protein Urine Trace mg/dL (Negative); RBC Urine 0-2 /hpf (0-2); Specific Grav Ur 1.018 (1.001-1.035); Squamous Epithelial Cell Urine Moderate /hpf (Few); WBC Urine >100 /hpf (0-3)
[2024-05-08 05:07] VITALS: BP 127/76; PULSE 87; RESP 16; TEMP 37; O2SAT 98
--- NOTE | 2024-05-08 05:12 | ED_ITS ---
HPI - General Adult General Chief complaint: Urogenital-Female Stated complaint: UTI sx; 28 weeks ago Time Seen by Provider: 05/08/24 04:10 History of Present Illness HPI narrative: Patient 23-year-old female who presents emergency department chief of burning urination and vaginal discharge patient reports she is 28 weeks reports that she believes she may have UTI. Related Data Home Medications ?Medication ?Instructions ?Recorded ?Confirmed ?Last Taken ?Type docosahexaenoic acid 200 mg mg PO 02/09/24 04/30/24 05/07/24 History capsule ( DHA) Allergies Allergy/AdvReac Type Severity Reaction Status Date / Time shellfish derived Allergy Intermediate Rash Verified 05/08/24 04:18 Review of Systems Review of Systems: A 10 system review of systems was completed on the patient and is negative except for what is stated in the HPI. Nursing and ancillary documentation was reviewed. [facility] Past Medical History Medical History Overweight (BMI 25.0-29.9) and not yet delivered Irregular periods/menstrual cycles Depression Anxiety Sexually transmissible disease Surgical History Surgical History History of placement of ear tubes @ age 5 Family History Family History Grandparent Hypertension paternal grandmother Malignant tumor of ovary maternal grandmother Social History Social History Years smoked: 5 Smoking status: Current some day smoker Tobacco type: e-cigarettes/vaping Additional smoking assessment comments: vaped Alcohol intake: never Substance use: current Substance use type: marijuana Last use: today/daily Do You Feel Safe in your Home?: Yes Lack of Transportation: No Lack of Food: Never True Current Housing: I Have Housing Concerned About Future Housing: No Difficulty Paying Gas/Electric Bills: No Difficulty Paying for Meds: No Currently Unemployed: No Education: High School Diploma/GED Difficulty w/ Childcare or Family Care: No Living arrangements: with family Occupation/Education: student Additional occupation/education comments: working at [employer], 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 HEAD: Normocephalic, atraumatic. EYES: PERRLA and EOMI. ENT: Nares clear, no rhinorrhea or epistaxis. Mucous membranes moist. NECK: Supple. CHEST: Clear to auscultation. No respiratory distress. HEART: Regular rate and rhythm. No murmur heard. Normal peripheral pulses. ABDOMEN: Soft, nontender, nondistended, normal active bowel sounds. Gravid EXTREMITIES: Normal range of motion. No edema. SKIN: Warm, dry, no rash. NEURO: No focal deficits. Alert and oriented x3. PSYCH: Normal mood and affect. Course Vital Signs Vital signs: Vital Signs Temperature 36.2 C L 05/08/24 04:04 Pulse Rate 89 05/08/24 04:04 Respiratory Rate 17 05/08/24 04:04 Blood Pressure 111/58 L 05/08/24 04:04 Pulse Oximetry 98 05/08/24 04:04 Oxygen Delivery Room Air 05/08/24 04:04 Temperature 37.0 C 05/08/24 05:07 Pulse Rate 87 05/08/24 05:07 Respiratory Rate 16 05/08/24 05:07 Blood Pressure 127/76 05/08/24 05:07 Pulse Oximetry 98 05/08/24 05:07 Oxygen Delivery Room Air 05/08/24 04:04 Medical Decision Making [facility] Narrative Medical decision making narrative: Differential diagnosis includes UTI, GC, chlamydia Urinalysis showed evidence of UTI Chlamydia and gonorrhea were negative The patient was started on Keflex and should follow-up with her OBGYN heart tones were within normal limits. Vital Signs Vital Signs: Vital Signs Temperature 36.2 C L 05/08/24 04:04 Pulse Rate 89 05/08/24 04:04 Respiratory Rate 17 05/08/24 04:04 Blood Pressure 111/58 L 05/08/24 04:04 Pulse Oximetry 98 05/08/24 04:04 Oxygen Delivery Room Air 05/08/24 04:04 Temperature 37.0 C 05/08/24 05:07 Pulse Rate 87 05/08/24 05:07 Respiratory Rate 16 05/08/24 05:07 Blood Pressure 127/76 05/08/24 05:07 Pulse Oximetry 98 05/08/24 05:07 Oxygen Delivery Room Air 05/08/24 04:04 Lab Data Labs: Lab Results 05/08/24 Range/Units 04:12 Urine Color Yellow (Yellow) Urine Appearance Cloudy H (Clear) Urine pH 6.0 (5.0-9.0) Ur Specific [place] 1.018 (1.001-1.035) Urine Protein Trace (Negative) mg/dL Urine Glucose (UA) Negative (Negative) mg/dL Urine Ketones 1+ H (Negative) mg/dL Ur Blood (Man) Trace (Negative) Urine Nitrate Negative (Negative) Urine Bilirubin Negative (Negative) Urine Urobilinogen 1.0 (<2.0) mg/dL Leukocyte Esterase Rfl 3+ H (Negative) DANISHA/UL Urine RBC 0-2 (0-2) /hpf Urine WBC >100 H (0-3) /hpf Ur Squamous Epith Cells Moderate (Few) /hpf Urine Bacteria Rare /hpf Urine Casts 0-2 C. trachomatis (PCR) Not detected (NOT DETECTE) N. gonorrhoeae (PCR) Not detected (NOT DETECTE) Discharge Plan Discharge Clinical Impression: UTI (urinary tract infection) Patient Disposition: Home, Self-Care Condition: Stable Instructions: Antibiotic Form, Urinary Tract Infection in (ED) Additional Instructions: Please follow-up with your OBGYN this week Patient Language: Scottish Prescriptions: New cephalexin 500 mg capsule 500 mg PO Q12H 7 Days Qty: 14 0RF No Action DHA 200 mg capsule PO Follow-up/Referrals: PHYSICIAN,ADMINISTRATIVE SALES ASSISTANT [Primary Care Provider] - Time of Disposition: 06:00
[2024-05-08 05:56] LABS: Chlamydia trachomatis NOT DETECTED (NOT DETECTE); Neisseria gonorrhoeae PCR NOT DETECTED (NOT DETECTE)
== END 2024-05-08 06:03 | disposition home or self-care (01) ==
PROVIDERS: Emergency Provider Emergency Medicine
DX: O23.43 Unspecified infection of urinary tract in pregnancy, third trimester (principal); N39.0 Urinary tract infection, site not specified; Z3A.28 28 weeks gestation of pregnancy
CPT/HCPCS: 81001; 87491; 87591; 99284

== ENCOUNTER 2024-05-09 11:01 | Observation (INO) | payer OTHER, SELFPAY ==
[2024-05-09] VITALS (29 sets, daily range): BP systolic 111–127; BP diastolic 60–94; PULSE 81–113; RESP 16–18; TEMP 36.4–37.4; O2SAT 97–100; BMI 27.5
--- NOTE | 2024-05-09 11:56 | P.HP_ITS ---
H&P: HPI History of Present Illness Date/Time: 05/09/24 11:56 Chief Complaint: severe vaginal pain Narrative: Samia is a 23yo @ 27w4d who called the office this morning with severe genital pain and new sores. She reports that on Tuesday night she started having irritation, by Tuesday the pain was bad when she urinated. She thought she had a UTI and was started an cephalexin for UTI (went to ER 05/08/24, GC/CT neg-- UCx p ending). She reports yesterday, the pain became severe and she then noticed ulcers all over her genitals. She is taking tylenol but it isn't fully helping. She has been sitting in a bath almost all day/night due to the pain. She does feel like she has fevers, chills, groin pain. This is the first time she has ever had an outbreak. The FOB had an incident with his prior child's mother and she reports that she got HSV from him. Her is complicated by: - H/o delivery; last delivery 08/2022--- was 36.3wks. - Varicella non-immune - SGA on anatomy? repeat US 04/11/24 normal; continue q4wk growth US - primary genital HSV outbreak @ 27wks w/ admission for IV acyclovir Review of Systems 2 Constitutional: Constitutional: Reports chills, Reports fever(s), Denies headache(s) and Reports lethargy Eyes: Eyes: Denies change in vision ENT: Denies headache(s) Cardiovascular: Cardiovascular: Denies chest pain and Denies dyspnea Respiratory: Respiratory: Denies dyspnea Genitourinary: Genitourinary: Denies abnormal vaginal bleeding, Reports genital lesions, Reports dysuria and Reports vaginal discharge Neurologic: Denies headache(s) Psychiatric: Psychiatric: Denies anxiety and Denies depression [facility] Past Medical History Medical History Overweight (BMI 25.0-29.9) and not yet delivered Irregular periods/menstrual cycles Depression Anxiety Sexually transmissible disease Surgical History Surgical History History of placement of ear tubes @ age 5 Family History Family History Grandparent Hypertension paternal grandmother Malignant tumor of ovary maternal grandmother Social History Social History Years smoked: 5 Smoking status: Current some day smoker Tobacco type: e-cigarettes/vaping Additional smoking assessment comments: vaped Alcohol intake: never Substance use: current Substance use type: marijuana Last use: today/daily Do You Feel Safe in your Home?: Yes Lack of Transportation: No Lack of Food: Never True Current Housing: I Have Housing Concerned About Future Housing: No Difficulty Paying Gas/Electric Bills: No Difficulty Paying for Meds: No Currently Unemployed: No Education: High School Diploma/GED Difficulty w/ Childcare or Family Care: No Living arrangements: with family Occupation/Education: student Additional occupation/education comments: working at [employer], going to school to be a [employer] Gender identity (if verbalized by the patient): Female Sexual Orientation (if Verbalized by the Patient): Straight or Heterosexual Spiritual care concerns: No Meds Home Medications and Allergies Home Medications ?Medication ?Instructions ?Recorded ?Confirmed ?Type docosahexaenoic acid 200 mg mg PO 02/09/24 05/09/24 History capsule ( DHA) cephalexin 500 mg capsule 500 mg PO Q12H 7 days #14 caps 05/08/24 05/09/24 Rx acetaminophen 325 mg capsule 325 mg PO Q6H PRN 05/09/24 05/09/24 History (Tylenol) cranberry fruit concentrate 250 mg 250 mg PO TID 05/09/24 05/09/24 History chewable tablet (Azo Cranberry) valacyclovir 1 gram tablet 1,000 mg PO Q12H #20 tabs 05/09/24 05/09/24 Rx (Valtrex) Allergies Allergy/AdvReac Type Severity Reaction Status Date / Time shellfish derived Allergy Intermediate Rash Verified 05/09/24 10:09 Vital Signs Vital Signs - 24 hr 05/09/24 11:20 05/09/24 11:21 Pulse Rate 81 Blood Pressure 121/64 Pulse Oximetry 99 Exam 2 Const: General: cooperative and in distress (crying in pain, walking very slowly (wide stance)) moderate Orientation/consciousness: patient oriented x3 Resp: Effort & Inspection: normal respiratory effort Cardio: Rate: regular rate GI: GI Palp: No abdominal tenderness : External Female Exam: erythema, externally tender, external swelling and lesion (significant amount of genital ulcers, very tender to touch) Speculum Exam - Vagina: erythematous, No vaginal bleeding and tenderness Other: FHT's: 130's/ mod stewart/ + accels/ no decels - reassuring Female genitals images: 1. ulcers 2. ulcers 3. ulcers 4. ulcers Skin: General skin exam: normal color Neuro: General: patient oriented x3 Extrem: General: normal to inspection Psych: Appearance: grossly normal Affect: normal affect Attitude: c ooperative Assessment and Plan Assessment and plan (1) Primary genital herpes simplex infection: Code(s): A60.00 - Herpesviral infection of urogenital system, unspecified Status: Acute (2) : Code(s): Z34.90 - Encounter for supervision of normal , unspecified, unspecified trimester Status: Acute Plan - Pt with significant amount of genital ulcers coalescing to form a large ulcer, causing severe pain - Will admit for 24-48 hours of IV acyclovir and pain control - Acyclovir 10mg/kg q8h IV -- plan for 24-48 hours (based on improvement of clinical presentation/symptoms) - IV morphine 2mg IV q2h PRN - HSV antibodies sent + CMP + CBC - HSV swab sent in office pending (commonly takes 1 week for results) - Urine culture from 05/08/24 pending; continue cephalexin PO - Regular diet - Allison catheter if she cannot urinate - Pericare - heart tones and maternal vitals q4h; NST qShift
[2024-05-09 12:09] LABS: Basophils Percent Auto 0.4 % (0.2-1.2); Eosinophils Percent Auto 0.2 % (0-4.4); Hematocrit 32.9 % (37.0-47.0); Hemoglobin 10.7 g/dL (12.0-15.0); Immature Granulocyte Absolute 0.07 K/mm3 (0.00-0.031); Immature Granulocyte Percent A 0.7 % (0-0.5); Lymphocytes Absolute Auto 1.05 K/mm3 (0.9-3.2); Mean Corpuscular HGB Conc 32.5 g/dl (32-36); Mean Corpuscular Hemoglobin 27.6 pg (26-34); Mean Platelet Volume 9.2 fl (7.4-10.4); Monocytes Percent Auto 10.4 % (2.6-8.5); Neutrophils Absolute Auto 7.3 K/mm3 (1.3-6.7); Neutrophils Percent Auto 77.3 % (45.5-73.1); Platelet Count Result 319 k/mm3 (150-375); Red Blood Count 3.87 M/mm3 (4.2-5.4); Red Cell Distribution Width 14.4 % (11.5-14.5); White Blood Count 9.5 K/mm3 (4.5-10.0)
[2024-05-09] MEDS: MORPHINE SULFATE (*CRX) 2 MG/ML INJ IV PUSH ×3 (12:19→21:06)
[2024-05-09 12:20] LABS: Alanine Aminotransferase 18 U/L (6-35); Albumin Level 3.6 g/dL (3.5-5.1); Alkaline Phosphatase 102 U/L (38-126); Anion Gap 13 mmol/L (4-12); Aspartate Amino Transferase 25 U/L (14-36); Bilirubin,Total 0.7 mg/dL (0.2-1.3); Blood Urea Nitrogen 5 mg/dL (7-17); Calcium 8.8 mg/dL (8.4-10.2); Carbon Dioxide 21 mmol/L (22-30); Chloride 101 mmol/L (98-107); Estimated CRCL calculation 205 ml/min; Estimated Glomerular Filt Rate > 60; Glucose 101 mg/dL (65-110); Potassium 3.5 mmol/L (3.4-5.0); Sodium 135 mmol/L (137-145)
[2024-05-09] MEDS: BENZOCAINE 20% AER SPR (*SP) 56 GM CAN 1 SPRAY TOPICAL (12:20)
[2024-05-09] MEDS: WITCH HAZEL 40 PADS 1 PAD TOPICAL (12:20)
[2024-05-09] MEDS: ACYCLOVIR SODIUM IVPB 750 MG in DEXTROSE 5% IN WATER 250 ML 250 MG IVPB ×2 (12:51→21:07)
--- NOTE | 2024-05-09 15:53 | PC.NURSE ---
Pt still has intense pain with urination, otherwise she states the pain is staying at a 2 out of 10. Pt shivering when she was just up to bathroom. Temp 99.4
[2024-05-09] MEDS: ACETAMINOPHEN 500 MG TABLET 1000 MG PO ×2 (15:56→22:14)
[2024-05-09] MEDS: CEPHALEXIN 500 MG CAPSULE PO (18:14)
[2024-05-10] VITALS (34 sets, daily range): BP systolic 111–136; BP diastolic 54–114; PULSE 77–116; RESP 16–18; TEMP 36.2–36.8; O2SAT 91–100
[2024-05-10] MEDS: MORPHINE SULFATE (*CRX) 2 MG/ML INJ IV PUSH ×5 (01:05→22:09)
[2024-05-10] MEDS: ACETAMINOPHEN 500 MG TABLET 1000 MG PO (04:43)
[2024-05-10] MEDS: CEPHALEXIN 500 MG CAPSULE PO ×2 (05:50→18:17)
[2024-05-10] MEDS: ACYCLOVIR SODIUM IVPB 750 MG in DEXTROSE 5% IN WATER 250 ML 250 MG IVPB ×3 (06:22→22:00)
--- NOTE | 2024-05-10 06:54 | P.PNOB_ITS ---
OB - PN: Subj Subjective Date/time seen: 05/10/24 05:27 Interval history: HD#2 She has received the acyclovir IV now 3 times. She has gotten morphine 5 times since admission-- pain is not improved. The Dermoplast spray works well for her to urinate. She has tolerated regular diet. No N/V. She reports good movement. No ctx, vb, lof. OB - PN: Obj Data Labs 05/09/24 11:52 05/09/24 11:52 Labs: Laboratory Results - last 24 hr 05/09/24 11:52 WBC 9.5 RBC 3.87 L Hgb 10.7 L Hct 32.9 L MCV 85.0 MCH 27.6 MCHC 32.5 RDW 14.4 Plt Count 319 MPV 9.2 Immature Gran % (Auto) 0.7 H Neut % (Auto) 77.3 H Lymph % (Auto) 11.0 L [place] % (Auto) 10.4 H Eos % (Auto) 0.2 Baso % (Auto) 0.4 Lymph # (Auto) 1.05 [place] # (Auto) 1.0 H Eos # (Auto) 0.0 Baso # (Auto) 0.0 Abs Immat Gran (auto) 0.07 H Absolute Neuts (auto) 7.3 H Absolute Nucleated RBC 0.000 Nucleated RBC % 0.0 Sodium 135 L Potassium 3.5 Chloride 101 Carbon Dioxide 21 L Anion Gap 13 H BUN 5 L Creatinine 0.35 L Estim Creat Clear Calc 205 Estimated GFR > 60 Glucose 101 Calcium 8.8 Total Bilirubin 0.7 AST 25 ALT 18 Alkaline Phosphatase 102 Total Protein 8.0 Albumin 3.6 OB - PN A/P Assessment and Plan (1) Primary genital herpes simplex infection: Code(s): A60.00 - Herpesviral infection of urogenital system, unspecified Status: Acute (2) : Code(s): Z34.90 - Encounter for supervision of normal , unspecified, unspecified trimester Status: Acute Plan - Pt with significant amount of genital ulcers coalescing to form a large ulcer, causing severe pain - Acyclovir 10mg/kg q8h IV -- plan for at least 24-48 hours (based on improvement of clinical presentation/symptoms) - IV morphine 2mg IV q2h PRN breakthrough--> Percocet 5/325mg PO q4h PRN - Pt reports pain is about the same today; but edema and erythema increased from yesterday - HSV antibodies pending - HSV swab sent in office pending (commonly takes 1 week for results) - Urine culture from 05/08/24 pending; continue cephalexin PO - Regular diet - Pericare - heart tones and maternal vitals q4h; NST qShift - Pt will then continue on Valtrex 1000mg BID x 10 days (rx already at pharmacy) Time Spent With Patient Time: Total time spent is greater than 50% in coordination of care (as documented) at patient's floor/unit and/or counseling patient: Review of Systems 2 Constitutional: Constitutional: Denies chills, Denies fever(s) and Denies headache(s) Eyes: Eyes: Denies change in vision ENT: Denies headache(s) Cardiovascular: Cardiovascular: Denies chest pain and Denies dyspnea Respiratory: Respiratory: Denies dyspnea Genitourinary: Genitourinary: Denies abnormal vaginal bleeding, Reports genital lesions, Reports dysuria and Reports vaginal discharge Neurologic: Denies headache(s) Psychiatric: Psychiatric: Denies anxiety and Denies depression Exam 2 Const: General: cooperative and in distress (crying in pain, walking very slowly (wide stance)) moderate Orientation/consciousness: patient oriented x3 Resp: Effort & Inspection: normal respiratory effort Cardio: Rate: regular rate GI: GI Palp: No abdominal tenderness : External Female Exam: erythema (increased from yesterday), externally tender, external swelling (increased from yesterday) and lesion (significant amount of genital ulcers, very tender to touch) Speculum Exam - Vagina: e rythematous, No vaginal bleeding and tenderness Other: FHT's: 130's/ mod stewart/ + accels/ no decels - reassuring Skin: General skin exam: normal color Neuro: General: patient oriented x3 Extrem: General: normal to inspection Psych: Appearance: grossly normal Affect: normal affect Attitude: c ooperative
[2024-05-10] MEDS: oxyCODONE/ACETAMINOPHEN (*CRX) 5-325 MG TABLET 1 TABLET PO ×3 (07:10→18:44)
--- NOTE | 2024-05-10 17:57 | PC.NURSE ---
Entered room to find pt calling out Oww in a loud voice. Rating pain a 10. Returned Percocet in favor of giving the Morphine due to the intensity of her pain. Pt's mother is in the room and states pt's pain seemed to amp up out of nowhere.
--- NOTE | 2024-05-10 18:05 | PC.NURSE ---
Labia looks redder than this morning and can see darker red dry patchy lesions on the edge of her labia going inward. New ice pack also applied. Offered to bring the Dermoplast spray or the Tucks to her from the bathroom but pt states that has started to burn.
[2024-05-11] VITALS (46 sets, daily range): BP systolic 107–121; BP diastolic 57–78; PULSE 42–148; RESP 14–18; TEMP 36.3–37.4; O2SAT 87–100
[2024-05-11] MEDS: MORPHINE SULFATE (*CRX) 2 MG/ML INJ IV PUSH ×2 (03:40→07:05)
[2024-05-11] MEDS: oxyCODONE/ACETAMINOPHEN (*CRX) 5-325 MG TABLET 1 TABLET PO ×4 (03:40→22:14)
[2024-05-11] MEDS: ACYCLOVIR SODIUM IVPB 750 MG in DEXTROSE 5% IN WATER 250 ML 250 MG IVPB ×3 (05:55→22:14)
[2024-05-11] MEDS: CEPHALEXIN 500 MG CAPSULE PO ×2 (05:56→17:34)
[2024-05-11] MEDS: ACETAMINOPHEN 325 MG TABLET 650 MG PO (05:56)
[2024-05-11] MEDS: PETROLATUM OINTMENT 5 GM PACKET 1 APPLIC TOPICAL (07:01)
--- NOTE | 2024-05-11 11:00 | PC.NURSE ---
Pt still just rating pain a 1. Does go up to a 4 when she urinates, but feeling better. Continue with diaper ice packs with vaseline on the diaper to prevent sticking.
--- NOTE | 2024-05-11 12:50 | PM.OBPNVD ---
OB - PN: Subj Subjective Date/time seen: 05/11/24 12:50 HD 3 Pain continues to the point of needing intermittent morphine. Does state that it feels a bit better though overall still feeling quite poorly. Also is feeling some cramping, no bleeding or leaking. Monitor strip shows uterine contractions, some felt some not Will give subcutaneous terbutaline to stop these contractions, may need procardia XL if recurs Continue current plan. Interval history: HD#2 She has received the acyclovir IV now 3 times. She has gotten morphine 5 times since admission-- pain is not improved. The Dermoplast spray works well for her to urinate. She has tolerated regular diet. No N/V. She reports good movement. No ctx, vb, lof. OB - PN: Obj Data Labs 05/09/24 11:52 05/09/24 11:52 Labs: Laboratory Results - last 24 hr 05/09/24 11:52 HSV I Specific Ab <0.90 HSV II Specific Ab <0.90 OB - PN A/P Time Spent With Patient Time: Total time spent is greater than 50% in coordination of care (as documented) at patient's floor/unit and/or counseling patient:
[2024-05-11] MEDS: TERBUTALINE SULFATE 1 MG/ML VIAL 0.25 MG SUB-Q (13:07)
[2024-05-11] MEDS: NIFEdipine 30 MG TAB.ER.24 PO (14:23)
--- NOTE | 2024-05-11 17:34 | PC.NURSE ---
Pt has had a much better day. Pain was a 4 with urination. Percocet given to help make sure her pain doesn't ramp back up.
--- NOTE | 2024-05-11 19:23 | PC.NURSE ---
Dr. Lang in room with pt to discuss plan of care.
[2024-05-11] MEDS: DEXTROSE 5%/LACTATED RINGERS 1,000 ML 999 ML IV CONT (23:28)
--- NOTE | 2024-05-12 00:20 | PC.NURSE ---
Pt denies feeling any more ctx. RN palpated pt stomach no ctx noted
[2024-05-12] MEDS: oxyCODONE/ACETAMINOPHEN (*CRX) 5-325 MG TABLET 1 TABLET PO ×2 (02:29→07:32)
[2024-05-12 02:31] VITALS: BP 103/56; PULSE 79
[2024-05-12 02:36] VITALS: TEMP 36.4
[2024-05-12] MEDS: ACYCLOVIR SODIUM IVPB 750 MG in DEXTROSE 5% IN WATER 250 ML 250 MG IVPB (05:44)
[2024-05-12] MEDS: NIFEdipine 30 MG TAB.ER.24 PO (05:44)
[2024-05-12] MEDS: CEPHALEXIN 500 MG CAPSULE PO (05:44)
[2024-05-12 05:53] VITALS: BP 114/65; PULSE 85
[2024-05-12 05:59] VITALS: TEMP 36.6
[2024-05-12 07:35] VITALS: BP 120/68; PULSE 86
== END 2024-05-12 10:20 | disposition home or self-care (01) ==
PROVIDERS: Admitting Provider Obstetrics & Gynecology; Visit Provider Obstetrics & Gynecology
DX: O98.312 Other infections with a predominantly sexual mode of transmission complicating pregnancy, second trimester (principal); A60.00 Herpesviral infection of urogenital system, unspecified; O99.332 Smoking (tobacco) complicating pregnancy, second trimester; F17.290 Nicotine dependence, other tobacco product, uncomplicated; Z3A.27 27 weeks gestation of pregnancy
CPT/HCPCS: 36415; 59025; 80053; 85025; 86695; 86696; 96361; 96365; 96366; 96372; 96375; 96376; A9270; G0378; G0379; J0133; J2270; J3105; J7060; J7121

== ENCOUNTER 2024-05-25 09:28 | Outpatient (CLI) | payer OTHER, SELFPAY ==
[2024-05-25 10:49] LABS: Hematocrit 36.3 % (37.0-47.0); Hemoglobin 11.4 g/dL (12.0-15.0); Mean Corpuscular HGB Conc 31.4 g/dl (32-36); Mean Corpuscular Hemoglobin 27.5 pg (26-34); Mean Corpuscular Volume 87.5 fl (80-100); Mean Platelet Volume 9.3 fl (7.4-10.4); Platelet Count Result 494 k/mm3 (150-375); Red Blood Count 4.15 M/mm3 (4.2-5.4); Red Cell Distribution Width 15.1 % (11.5-14.5); White Blood Count 11.3 K/mm3 (4.5-10.0)
[2024-05-25 11:21] LABS: Glucose 1 Hour PP 50gm Dose 88 mg/dL
[2024-05-25 11:57] LABS: HIV 1/2 Ab P24 Ag Result Negative (Negative)
[2024-05-25 12:22] LABS: Syphilis IgG/IgM Antibody Negative (Negative)
== END 2024-05-25 09:29 | disposition home or self-care (01) ==
LOC: ANHLAB 09:30
PROVIDERS: Visit Provider Obstetrics & Gynecology
DX: Z34.90 Encounter for supervision of normal pregnancy, unspecified, unspecified trimester (principal)
CPT/HCPCS: 36415; 82947; 85027; 86593; 86703; G0432

== ENCOUNTER 2024-06-07 21:10 | Observation (INO) | payer OTHER, SELFPAY ==
[2024-06-07] VITALS (16 sets, daily range): BP systolic 94–114; BP diastolic 53–72; PULSE 73–84; O2SAT 98–100; BMI 28.9
--- NOTE | 2024-06-07 21:29 | OBADM ---
This patient, Samia Green, admitted to the OB room OB Post 117 for observation. Patient/family oriented to hospital policies and general routines including ID bracelet, bed and alarms, visiting hours, pain management, procedures, bathroom and other care routines, personal items, smoking policy, room service/diet, and visiting hours. Patient/Family are encouraged to report perceived risks to care and to ask questions if they do not understand what they are told or what they should do.
[2024-06-07 21:55] LABS: Add Urine Microscopic? NO; Appearance Urine Clear (Clear); Bilirubin Urine Negative (Negative); Blood Urine Negative (Negative); Color Urine Yellow (Yellow); Glucose Urine UA Negative (Negative); Ketones Urine Negative (Negative); Leukocyte Esterase Ur Negative LEU/UL (Negative); Nitrate Urine Negative (Negative); Protein Urine Negative (Negative); Specific Grav Ur 1.007 (1.001-1.035); pH Urine 6.5 (5.0-9.0)
--- NOTE | 2024-06-07 22:21 | PC.NURSE ---
Called Dr. Anand operations and maintenance specialist for Dr. Valdez, notified of VSS, NST reactive, one contraction since she has been here. Order to check cervix and if closed D/C home
--- NOTE | 2024-06-07 22:27 | PC.NURSE ---
Called Dr. Anand, informed of JACQUI VALLEJO to D/C home per .
--- NOTE | 2024-07-04 07:55 | P.PNOB_ITS ---
OB - Triage/Final Diagnosis Visit Information Comments/Additional reasons for admission: I have assessed the risk for this patient, Samia Green, and determined that she would benefit from observation care. Evaluation Laboratory results: Laboratory Tests 06/07/24 21:48 Urine Color Yellow Urine Appearance Clear Urine pH 6.5 Ur Specific [place] 1.007 Urine Protein Negative Urine Glucose (UA) Negative Urine Ketones Negative Ur Blood (Man) Negative Urine Nitrate Negative Urine Bilirubin Negative Urine Urobilinogen 1.0 Leukocyte Esterase Rfl Negative Final Diagnosis (1) contractions: Code(s): O47.00 - False labor before 37 completed weeks of gestation, unspecified trimester Status: Acute
== END 2024-06-07 22:35 | disposition home or self-care (01) ==
LOC: ANHOBPP 21:14
PROVIDERS: Admitting Provider Obstetrics & Gynecology; Visit Provider Obstetrics & Gynecology
DX: O47.03 False labor before 37 completed weeks of gestation, third trimester (principal); Z3A.31 31 weeks gestation of pregnancy
CPT/HCPCS: 59025; 81003; G0378; G0379

== ENCOUNTER 2024-07-21 15:10 | Observation (INO) | payer OTHER, SELFPAY ==
--- NOTE | 2024-07-21 15:10 | OBADM ---
This patient, Samia Green, admitted to the OB room Labor/Delivery/Recovery 105 for observation. Patient/family oriented to hospital policies and general routines including ID bracelet, bed and alarms, visiting hours, pain management, procedures, bathroom and other care routines, personal items, smoking policy, room service/diet, and visiting hours. Patient/Family are encouraged to report perceived risks to care and to ask questions if they do not understand what they are told or what they should do.
[2024-07-21 15:22] VITALS: TEMP 36.6
[2024-07-21 15:30] VITALS: BMI 31.7
[2024-07-21 17:00] VITALS: BP 114/69; PULSE 88
--- NOTE | 2024-08-03 11:49 | PM.OBTRLD ---
OB - Triage/Final Diagnosis Visit Information Comments/Additional reasons for admission: I have assessed the risk for this patient, Samia Green, and determined that she would benefit from observation care. Final Diagnosis (1) False labor: Code(s): O47.9 - False labor, unspecified Status: Acute
== END 2024-07-21 17:05 | disposition home or self-care (01) ==
PROVIDERS: Admitting Provider Obstetrics & Gynecology; Visit Provider Obstetrics & Gynecology
DX: O47.9 False labor, unspecified (principal); Z3A.00 Weeks of gestation of pregnancy not specified
CPT/HCPCS: G0378; G0379

== ENCOUNTER 2024-07-25 20:25 | Observation (INO) | payer OTHER, SELFPAY ==
[2024-07-25 20:30] VITALS: BP 118/77; PULSE 87
[2024-07-25 20:45] VITALS: BP 134/88; PULSE 104
[2024-07-25 20:47] LABS: Add Urine Microscopic? YES; Appearance Urine Clear (Clear); Bacteria Urine None Seen /hpf; Bilirubin Urine Negative (Negative); Blood Urine 3+ (Negative); Color Urine Yellow (Yellow); Glucose Urine UA Negative (Negative); Ketones Urine Negative (Negative); Leukocyte Esterase Ur 2+ LEU/UL (Negative); Nitrate Urine Negative (Negative); Non Pathogenic Casts 0-2; Protein Urine Negative (Negative); RBC Urine >100 /hpf (0-2); Specific Grav Ur 1.017 (1.001-1.035); Squamous Epithelial Cell Urine Occasional /hpf (Few); WBC Urine 21-50 /hpf (0-3)
--- NOTE | 2024-07-26 07:47 | PM.OBTRLD ---
OB - Triage/Final Diagnosis Visit Information Date of evaluation: 07/25/24 Reason for evaluation: threatened labor Comments/Additional reasons for admission: I have assessed the risk for this patient, Samia Green, and determined that she would benefit from observation care. Evaluation Laboratory results: Laboratory Tests 07/25/24 20:34 Urine Color Yellow Urine Appearance Clear Urine pH 6.0 Ur Specific [place] 1.017 Urine Protein Negative Urine Glucose (UA) Negative Urine Ketones Negative Ur Blood (Man) 3+ H Urine Nitrate Negative Urine Bilirubin Negative Urine Urobilinogen 1.0 Leukocyte Esterase Rfl 2+ H Urine RBC >100 H Urine WBC 21-50 H Ur Squamous Epith Cells Occasional Urine Bacteria None seen Urine Casts 0-2 Vital signs: Vital Signs - 24 hr 07/25/24 20:25 07/25/24 20:30 07/25/24 20:45 Pulse Rate 87 104 H Blood Pressure 118/77 134/88 Oxygen Delivery Room Air
== END 2024-07-25 21:41 | disposition home or self-care (01) ==
PROVIDERS: Admitting Provider Student in an Organized Health Care Education/Training Program; Visit Provider Student in an Organized Health Care Education/Training Program
DX: O47.9 False labor, unspecified (principal); Z3A.00 Weeks of gestation of pregnancy not specified
CPT/HCPCS: 81001; 87086; G0378; G0379

== ENCOUNTER 2024-07-30 01:19 | Inpatient (IN) | payer OTHER, SELFPAY ==
[2024-07-30] VITALS (107 sets, daily range): BP systolic 87–142; BP diastolic 54–102; PULSE 30–138; RESP 16; TEMP 36.2–37.4; O2SAT 77–100; BMI 31.8
--- NOTE | 2024-07-30 01:37 | LDADM ---
This patient, Samia Green, was admitted to Labor/Delivery/Recovery 104 on 07/30/24 at 01:19. Plans for labor, pain management and were discussed with patient. Patient/family oriented to hospital policies and general routines including ID bracelet, bed and alarms, visiting hours, pain management, procedures, bathroom and other care routines, personal items, smoking policy, room service/diet and guest tray routines, infant security routines, and visiting hours. Patient/Family are encouraged to report perceived risks to care and to ask questions if they do not understand what they are told or what they should do. See [facility]BI[facility] for further documentation.
[2024-07-30 02:23] LABS: Basophils Percent Auto 0.3 % (0.2-1.2); Eosinophils Absolute Auto 0.1 K/mm3 (0-0.3); Hematocrit 35.1 % (37.0-47.0); Hemoglobin 10.9 g/dL (12.0-15.0); Immature Granulocyte Absolute 0.17 K/mm3 (0.00-0.031); Immature Granulocyte Percent A 1.4 % (0-0.5); Lymphocytes Absolute Auto 1.92 K/mm3 (0.9-3.2); Lymphocytes Percent Auto 15.9 % (18.3-44.2); Mean Corpuscular HGB Conc 31.1 g/dl (32-36); Mean Corpuscular Hemoglobin 25.3 pg (26-34); Mean Corpuscular Volume 81.6 fl (80-100); Mean Platelet Volume 9.8 fl (7.4-10.4); Monocytes Percent Auto 8.2 % (2.6-8.5); Neutrophils Absolute Auto 8.8 K/mm3 (1.3-6.7); Neutrophils Percent Auto 73.2 % (45.5-73.1); Platelet Count Result 389 k/mm3 (150-375); Red Cell Distribution Width 15.9 % (11.5-14.5); White Blood Count 12.1 K/mm3 (4.5-10.0)
[2024-07-30 03:02] LABS: Syphilis IgG/IgM Antibody Negative (Negative)
[2024-07-30] MEDS: LACTATED RINGERS 1,000 ML 125 ML IV CONT ×2 (03:08→05:38)
[2024-07-30] MEDS: OXYTOCIN 30 UNITS/NS 500 ML 30 UNITS/500 ML BAG IV CONT (03:09)
[2024-07-30 03:15] LABS: HIV 1/2 Ab P24 Ag Result Negative (Negative)
[2024-07-30] MEDS: fentaNYL CITRATE INJ (*CRX) 100 MCG/2 ML VIAL 50 MCG IV PUSH (04:52)
--- NOTE | 2024-07-30 05:47 | WPDANESEPP ---
Anes - Eval Pre Procedure Procedure: Labor epidural Date/Time: 07/30/24 05:47 Surgeon: Valentino Preop Diagnosis: Abdominal pain with contractions Pre Op Diagnosis: Leaking fluid Patient Data Age: 24 Gender: F Height: 1.65 m Weight: 87 kg Last Vital Signs Pulse 72 07/30/24 05:01 BP 137/85 07/30/24 05:01 Pulse Ox 100 07/30/24 05:46 O2 Del Method Room Air 07/30/24 02:34 Allergies Allergy/AdvReac Type Severity Reaction Status Date / Time shellfish derived Allergy Intermediate Rash Verified 07/24/24 15:48 Home Medications ?Medication ?Instructions ?Recorded ?Confirmed ?Type docosahexaenoic acid 200 mg 200 mg PO DAILY 02/09/24 07/24/24 History capsule ( DHA) valacyclovir 500 mg tablet 500 mg PO BID #180 tabs 05/24/24 07/24/24 Rx (Valtrex) Laboratory Tests 07/30/24 02:18 WBC 12.1 H K/mm3 (4.5-10.0) RBC 4.30 M/mm3 (4.2-5.4) Hgb 10.9 L g/dL (12.0-15.0) Hct 35.1 L % (37.0-47.0) MCV 81.6 fl (80-100) MCH 25.3 L pg (26-34) MCHC 31.1 L g/dl (32-36) RDW 15.9 H % (11.5-14.5) Plt Count 389 H k/mm3 (150-375) MPV 9.8 fl (7.4-10.4) Immature Gran % (Auto) 1.4 H % (0-0.5) Neut % (Auto) 73.2 H % (45.5-73.1) Lymph % (Auto) 15.9 L % (18.3-44.2) [place] % (Auto) 8.2 % (2.6-8.5) Eos % (Auto) 1.0 % (0-4.4) Baso % (Auto) 0.3 % (0.2-1.2) Lymph # (Auto) 1.92 K/mm3 (0.9-3.2) [place] # (Auto) 1.0 H K/mm3 (0.1-0.6) Eos # (Auto) 0.1 K/mm3 (0-0.3) Baso # (Auto) 0.0 K/mm3 (0.0-0.1) Abs Immat Gran (auto) 0.17 H K/mm3 (0.00-0.031) Absolute Neuts (auto) 8.8 H K/mm3 (1.3-6.7) Absolute Nucleated RBC 0.000 K/mm3 (0.0-0.012) Nucleated RBC % 0.0 % (0.0-0.2) Syphilis IgG/IgM Ab Negative (Negative) HIV 1&2 Ab/P24 Ag 4thGn Negative (Negative) Blood Type A Positive Antibody Screen Negative : gestational age HCG: positive Patient hx anesthesia problems: none Family hx anesthesia problems: none Results Review: All pre-operative results and documents have been reviewed as part of the pre-operative evaluation. [facility] Past Medical History Medical History HSV-1 (herpes simplex virus 1) infection Overweight (BMI 25.0-29.9) and not yet delivered Irregular periods/menstrual cycles Depression Anxiety Sexually transmissible disease Surgical History Surgical History History of placement of ear tubes @ age 5 Family History Family History Grandparent Hypertension paternal grandmother Malignant tumor of ovary maternal grandmother Social History Social History Years smoked: 5 Smoking status: Current every day smoker Tobacco type: e-cigarettes/vaping Additional smoking assessment comments: vaped Alcohol intake: never Substance use: current Substance use type: marijuana Last use: today/daily Do You Feel Safe in your Home?: Yes Lack of Transportation: No Lack of Food: Never True Current Housing: I Have Housing Concerned About Future Housing: No Difficulty Paying Gas/Electric Bills: No Difficulty Paying for Meds: No Currently Unemployed: No Education: High School Diploma/GED Difficulty w/ Childcare or Family Care: No Living arrangements: with family Occupation/Education: student Additional occupation/education comments: working at [employer], 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
--- NOTE | 2024-07-30 06:29 | PC.NURSE ---
Report given to nurse.
--- NOTE | 2024-07-30 07:33 | WPDHPUPDATE1 ---
History and Physical Update Update Date/Time: 07/30/24 07:33 History and Physical has been reviewed, including an updated exam of the patient. There are NO changes in the patient's condition. Risks, benefits, and alternatives have been discussed and questions answered. Patient agrees to proceed with procedure.
--- NOTE | 2024-07-30 07:33 | WPDOBADMIT ---
Obstetrics - Admit Note Admission Note: record reviewed. No pertinent additions to the history and/or any subsequent changes in the physical findings that are not consistent with the expected course of the were found. Additions to the history and/or subsequent changes in the physical findings follow. None.
--- NOTE | 2024-07-30 07:33 | PM.OBPRVD ---
OB - Vaginal Delivery Note Procedure Delivery date: 07/30/24 Delivery augmentation: Pitocin Delivery monitor: External FHT and External Uterine Route of delivery: Episiotomy description: None Laceration Description: Perineal - 2nd Degree Delivery repair: chromic Specimen: No Quantitative Blood Loss (ml): 200 Anesthesia type: Epidural Disposition: Floor Complications: No immediate complications Narrative: Patient prepped draped this procedure. Maternal expulsive efforts delivered vertex, rest of baby without difficulty. Cord was clamped and cut and placenta delivered spontaneously. Cervix fine vagina and vulva were inspected with second-degree laceration noted. This was approximated by closing vaginal tissue in running interlocking manner with 0 chromic, deep tissue was approximated a subcuticular layer to approximate the perineum. No significant bleeding at this point the procedure was considered terminated with immediate postoperative condition of mother baby to be excellent. Baby Gestational Age by Date: 39 Infant gender: Female Weight (pounds): 7 Weight (ounces): 4 presentation: vertex Placenta delivery description: Spontaneous Cord Vessel Description: 3 Vessels score one minute: 8 score five minutes: 9
[2024-07-30] MEDS: OXYTOCIN 30 UNITS/NS 500 ML 30 UNITS/500 ML BAG 125 UNITS IV CONT (07:40)
[2024-07-30] MEDS: BENZOCAINE 20% AER SPR (*SP) 56 GM CAN 1 SPRAY TOPICAL (09:36)
[2024-07-30] MEDS: WITCH HAZEL 40 PADS 1 PAD TOPICAL (09:36)
[2024-07-30] MEDS: MULTIVIT/MIN/PREN/FOL AC/IRON TABLET 1 TAB PO (10:08)
--- NOTE | 2024-07-30 10:22 | PC.NURSE ---
Went into room to assess mother and baby at 1000. Mother is visiting with her family at this time and requested I come back later. Mother and baby are stable at this time. No current complaints.
--- NOTE | 2024-07-30 10:42 | OBPPTRN ---
Patient and baby transferred to post room #284 via ( wheelchair). Support person present. Oriented to unit, room, information board, rooming in, admission packet and security measures. Patient verbalizes understanding.
--- NOTE | 2024-07-30 11:15 | PC.NURSE ---
Introductions were made, then consulted with patient to assess needs related to . Mother's intention is to pump and bottle feed. She has her own breast pump here. Resources provided for inpatient and outpatient services with the feeding sheet, mom/baby guide and name written on the communication board. Mother voiced understanding of information and will call if there is a request for assistance. Reported to the Primary RN.
[2024-07-30] MEDS: IBUPROFEN 600 MG TABLET PO (14:18)
[2024-07-31] MEDS: IBUPROFEN 600 MG TABLET PO ×3 (02:40→19:45)
[2024-07-31 04:30] VITALS: BP 118/79; PULSE 76; RESP 16; TEMP 36.4; O2SAT 99
[2024-07-31 05:09] LABS: Hematocrit 33.2 % (37.0-47.0); Hemoglobin 10.2 g/dL (12.0-15.0)
--- NOTE | 2024-07-31 06:54 | PM.OBDSVD ---
DS: Admitting Diagnosis Discharge Date 07/31/24 Admitting Diagnosis SROM Active labor at term DS: Discharge Diagnosis Discharge Diagnosis (1) Normal vaginal delivery of second : Code(s): O80 - Encounter for full-term uncomplicated delivery Status: Acute OB - DS: Summary OB Procedures : Ultrasound OB Procedures Intrapartum: Spontaneous Vag Delivery OB Procedures: : None Peripartum Data Infant Delivery Method: Natural Vaginal Laceration Description: Perineal - 2nd Degree Episiotomy description: None complications: none [place] 1: Gender: Female Disposition of : home Status at Discharge Functional status at discharge: independent ambulation Overall status at discharge: patient is back to baseline Time Spent with Patient Time attestation: Total time spent providing and/or coordinating discharge services: Exam Const: General: cooperative, healthy appearing, comfortable and no acute distress Orientation/consciousness: patient oriented x3 Resp: Effort & Inspection: normal respiratory effort Auscultation: clear to auscultation bilaterally Cardio: Rate: regular rate GI: Inspection: non-distended GI Palp: No abdominal tenderness and Yes Soft to palpation Auscultation: normal bowel sounds : Other: fundus firm Skin: General skin exam: normal color Neuro: General: patient oriented x3 Extrem: General: normal to inspection Psych: Appearance: grossly normal Affect: normal affect Attitude: cooperative DS: Data Data Completed and Pending Labs on day of discharge: Labs from last 24 hours 07/30/24 02:18 WBC 12.1 H RBC 4.30 Hgb 10.9 L Hct 35.1 L MCV 81.6 MCH 25.3 L MCHC 31.1 L RDW 15.9 H Plt Count 389 H MPV 9.8 Immature Gran % (Auto) 1.4 H Neut % (Auto) 73.2 H Lymph % (Auto) 15.9 L [place] % (Auto) 8.2 Eos % (Auto) 1.0 Baso % (Auto) 0.3 Lymph # (Auto) 1.92 [place] # (Auto) 1.0 H Eos # (Auto) 0.1 Baso # (Auto) 0.0 Abs Immat Gran (auto) 0.17 H Absolute Neuts (auto) 8.8 H Absolute Nucleated RBC 0.000 Nucleated RBC % 0.0 Syphilis IgG/IgM Ab Negative HIV 1&2 Ab/P24 Ag 4thGn Negative Blood Type A Positive Antibody Screen Negative Discharge Plan Discharge Attending physician on discharge: Yulissa Valdez Discharging Clinician: Yulissa Valdez Anticipated Discharge Date/Time: 07/31/24 11:00 Patient Disposition: Home Activity: may shower and pelvic rest Diet: regular Patient Instructions: Vaginal Delivery (DC) Patient Language: Slovak Stand Alone Forms: General Discharge Information Follow-up/Referrals: Chidi Lang MD [Physician] - 4 Weeks Discharge Medications: New ibuprofen 800 mg tablet 800 mg PO TID Qty: 30 0RF acetaminophen 500 mg tablet 1,000 mg PO TID Qty: 60 0RF docusate sodium [Colace] 100 mg capsule 100 mg PO BID Qty: 90 0RF Continued DHA 200 mg capsule 200 mg PO DAILY valacyclovir [Valtrex] 500 mg tablet 500 mg PO BID Qty: 180 3RF Date of admission: 07/30/24 01:19 Primary Care Provider: UNKNOWN,DOCTOR Admitting Provider: Yulissa Valdez Attending physician on admission: Yulissa Valdez Condition: Stable
--- NOTE | 2024-07-31 07:08 | P.PNOB_ITS ---
OB - PN: Subj Subjective Date/time seen: 07/31/24 07:08 Narrative: PPD#1 Samia reports doing well today. 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 Her pain is controlled. She is tolerating regular diet, voiding, passing gas, and ambulating without issues. She is breast feeding. OB - PN: Obj Data Labs 07/31/24 04:44 Labs: Laboratory Results - last 24 hr 07/31/24 04:44 Hgb 10.2 L Hct 33.2 L OB - PN A/P Assessment and Plan (1) Normal vaginal delivery of second : Code(s): O80 - Encounter for full-term uncomplicated delivery Status: Acute Plan day: 1 Plan: routine care Comments: - PO pain meds - Regular diet - Ambulation and hydration encouraged - Continue putting baby to breast q2-3hr Time Spent With Patient Time: Total time spent is greater than 50% in coordination of care (as documented) at patient's floor/unit and/or counseling patient: Review of Systems 2 Constitutional: Constitutional: Denies chills, Denies fever(s) and Denies headache(s) Eyes: Eyes: Denies change in vision ENT: Denies dizziness and Denies headache(s) Cardiovascular: Cardiovascular: Denies chest pain, Denies palpitations and Denies dyspnea Respiratory: Respiratory: Denies cough and Denies dyspnea Gastrointestinal: Gastrointestinal: Denies nausea and Denies vomiting Neurologic: Denies dizziness and Denies headache(s) Endocrine: Endocrine: Denies palpitations Exam 2 Const: General: cooperative, healthy appearing, comfortable and no acute distress Orientation/consciousness: patient oriented x3 Resp: Effort & Inspection: normal respiratory effort Auscultation: clear to auscultation bilaterally Cardio: Rate: regular rate GI: Inspection: non-distended GI Palp: No abdominal tenderness and Yes Soft to palpation Auscultation: normal bowel sounds : Other: fundus firm Skin: General skin exam: normal color Neuro: General: patient oriented x3 Extrem: General: normal to inspection Psych: Appearance: grossly normal Affect: normal affect Attitude: c ooperative
[2024-07-31 07:55] VITALS: BP 115/76; PULSE 66; RESP 16; TEMP 36.6; O2SAT 100
[2024-07-31] MEDS: DOCUSATE SODIUM 100 MG CAPSULE PO (08:38)
[2024-07-31] MEDS: MULTIVIT/MIN/PREN/FOL AC/IRON TABLET 1 TAB PO (08:38)
--- NOTE | 2024-07-31 15:19 | PC.NURSE ---
Introductions were made, then consulted with patient to assess needs related to . Discussed with mother her?plans to feed?her and the?experience so far, she still plans on only pump and bottling, she is consistently pumping and getting 1-2 ounces each time, she is not having any pain with pumping. Resources provided for inpatient and outpatient services with the feeding sheet, mom/baby guide and name written on the communication board. Mother voiced understanding of information and will call if there is a request for assistance. Reported to the Primary RN.
[2024-07-31 19:26] VITALS: BP 132/82; PULSE 92; RESP 18; TEMP 37.1; O2SAT 100
[2024-08-01 07:45] VITALS: BP 109/74; PULSE 67; RESP 16; TEMP 37.4; O2SAT 99
[2024-08-01] MEDS: MULTIVIT/MIN/PREN/FOL AC/IRON TABLET 1 TAB PO (08:41)
[2024-08-01] MEDS: IBUPROFEN 600 MG TABLET PO (08:41)
[2024-08-01] MEDS: DOCUSATE SODIUM 100 MG CAPSULE PO (08:41)
--- NOTE | 2024-08-01 09:53 | PC.NURSE ---
Checked in with patient to assess any needs related to and/or pumping. Mother is exclusively pumping and bottle feeding infant and denies any additional information or education at this time. Communication board updated, mother will call for assistance if needed.
[2024-08-02 11:45] VITALS: BP 121/79; PULSE 86; RESP 18; TEMP 37.6; O2SAT 98
== END 2024-08-01 11:17 | disposition home or self-care (01) | DRG 560 ==
LOC: ANHLDR 01:32 → ANHOB2 09:52
PROVIDERS: Admitting Provider Obstetrics & Gynecology; Visit Provider Obstetrics & Gynecology
DX: O62.3 Precipitate labor (principal); Z37.0 Single live birth; Z3A.39 39 weeks gestation of pregnancy; O70.1 Second degree perineal laceration during delivery
CPT/HCPCS: 36415; 85014; 85018; 85025; 86593; 86703; 86850; 86900; 86901; A9270; G0432; J2590; J2795; J3010; J7120